=== PATIENT | female | born 1930 | race Caucasian/White ===

== ENCOUNTER 2017-10-04 05:53 | Inpatient (IN) | payer MEDICARE, OTHER ==
[2017-10-04] MEDS ORDERED: NS 0.9% 1000 ML* 1,000 ML IV ONE (05:54)
[2017-10-04 06:40] LABS: ABS Basophils 0.2 10^3/ul (0-0.2); ABS Eosinophils 0.1 10^3/ul (0-0.6); ABS Lymphocytes 1.4 10^3/ul (1.0-4.8); ABS Monocytes 0.6 10^3/ul (0-0.8); ABS Neutrophils 4.5 10^3/ul (1.5-7.7); ABS Nucleated RBC 0 10^3/ul; Eosinophil % 2.1 % (0-6); Hematocrit 36 % (35-47); Hemoglobin 12.1 g/dl (12.0-16.0); Lymphocyte % 20.1 % (25-47); Mean Corpuscular HGB Conc 34 g/dl (31-36); Mean Corpuscular Hemoglobin 30 pg (27-31); Mean Corpuscular Volume 88 fL (80-97); Mean Platelet Volume 8.9 um3 (7.4-10.4); Nucleated Red Blood Cells % 0.1; Platelet Count 359 10^3/ul (150-450); Red Blood Count 4.08 10^6/ul (4.00-5.40); Red Cell Distribution Width 16 % (10.5-15); White Blood Count 6.8 10^3/ul (3.5-10.8)
[2017-10-04 06:49] LABS: INR 0.86 (0.77-1.02)
[2017-10-04 06:55] LABS: EGFR Non-African American 83.7 (>60)
[2017-10-04] MEDS ORDERED: Iohexol 350* (CONTRAST) 500 ML MDV IV ONE (07:06)
--- NOTE | 2017-10-04 08:05 | RAD ---
INDICATION: Change in mental status COMPARISON: Chest x-ray February 19, 2015 TECHNIQUE: An AP portable view obtained at 0635 hours is submitted. FINDINGS: Bones/Soft Tissues: There are no acute bony findings. Cardiomediastinal: The cardiomediastinal silhouette is normal. Lungs: There is hyperinflation with chronic interstitial change. Pleura: There are no pleural effusions. Other: None IMPRESSION: NO ACTIVE DISEASE.
--- NOTE | 2017-10-04 08:06 | RAD ---
INDICATION: Evaluate for CVA COMPARISON: CT brain February 10, 2014 TECHNIQUE: Noncontrast axial source images were acquired from the skull base to the vertex. FINDINGS: Ventricles/sulci: There is cortical atrophy with compensatory dilatation of the CSF spaces. Brain parenchyma: There is periventricular and subcortical white matter change compatible with chronic ischemia. Intracranial hemorrhage:None. Extra-axial spaces: There are no abnormal extra axial fluid collections or evidence of extra-axial mass. Calvarium: There is no calvarial fracture or other calvarial abnormality. Scalp: There is no evidence of scalp or extracalvarial soft tissue abnormality. Paranasal sinuses/mastoid: The paranasal sinuses and mastoid air cells are clear. Other: None. IMPRESSION: Cortical atrophy with chronic microvascular ischemic change. No acute findings.
--- NOTE | 2017-10-04 08:29 | RAD ---
INDICATION: TIA COMPARISON: CT brain same date TECHNIQUE: Axial source images were acquired with coronal and sagittal reconstructions. CT angiographic technique was utilized with injection of 80 mL Omnipaque 350. FINDINGS: Aortic arch: There are no CT angiogram abnormalities of the arch or the great vessels arising from the arch. Right carotid: The common carotid artery, carotid bifurcation, extracranial portions of the internal carotid artery, carotid artery at the skull base, carotid siphon, and carotid termination appear widely patent. There is mild plaque formation about the carotid bifurcation carotid sinus with a 30% diameter stenosis at the right carotid bifurcation.. Left carotid:The common carotid artery, carotid bifurcation, extracranial portions of the internal carotid artery, carotid artery at the skull base, carotid siphon, and carotid termination appear widely patent. There is mild plaque formation about the carotid bifurcation carotid sinus with a 30% diameter stenosis of the left carotid bifurcation. Right middle and anterior cerebral arteries: There are no CT angiographic abnormalities of the middle or anterior cerebral arteries. Left middle and anterior cerebral arteries: There are no CT angiographic abnormalities of the middle or anterior cerebral arteries Right vertebral: The CT angiographic appearance of the vertebral artery is normal. Left vertebral: The CT angiographic appearance of the vertebral artery is normal. Basilar artery: The basilar artery and basilar tip appear normal. Posterior cerebral arteries: The distal distribution of the right and left posterior cerebral arteries is normal. [place]: The CT angiographic appearance of the [place] is normal. Source images show no evidence of mass or adenopathy within the neck. There are no focal brain parenchymal abnormalities or abnormal areas of enhancement. There is cortical atrophy. IMPRESSION: NO EVIDENCE OF INTRACRANIAL LARGE VESSEL BRANCH OCCLUSION, ANEURYSM, OR SIGNIFICANT STENOSIS. MILD SCLEROTIC CHANGES INVOLVING THE CAROTID BIFURCATIONS AND CAROTID SIPHONS BILATERALLY. CPT II Codes: 3100F PQRS
[2017-10-04 08:34] LABS: Urine Appearance Clear; Urine Blood 1+ (Negative); Urine Color Colorless; Urine Ketones Negative (Negative); Urine Protein Negative (Negative); Urine Specific Gravity 1.024 (1.010-1.030); Urine Urobilinogen Negative (Negative)
[2017-10-04] MEDS ORDERED: Metoprolol Tartrate IV* 1 MG/ML 5 ML VIAL IV PRN (09:21)
[2017-10-04] MEDS ORDERED: hydrALAZINE IV* 20 MG/ML VIAL IV SLOW PU PRN (09:23)
--- NOTE | 2017-10-04 10:04 | HP ---
HISTORY AND PHYSICAL: ADDENDUM: DATE OF VISIT: 10/04/17 I have spoken on the phone with both and son who confirmed that the patient's code status will be do not resuscitate and do not intubate. The difference between the two has been explained to family and they both understand what they mean. [id number]/[facility] #: [id number] MTDD
[2017-10-04] MEDS: Omeprazole CAP* 20 MG PO SCH (10:49)
[2017-10-04] MEDS: Atenolol TAB* 50 MG PO SCH (10:49)
[2017-10-04] MEDS: Valsartan TAB* 80 MG PO SCH (10:49)
--- NOTE | 2017-10-04 11:01 | HP ---
ADMITTING HISTORY AND PHYSICAL: DATE OF ADMISSION: 10/04/17 CHIEF COMPLAINT: Increasing left-sided hemiparesis. 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 was observed by nursing staff to have some "garbled speech" according to the EMS note w ith a noted blood glucose of 134 and with a noted weakness with left ski base trimmer and left facial droop. She was also observed to be unable to lift her left leg and was sent to our facility for stroke evaluati on. In the ED, she had CT noncontrast which did not show any acute disease and a CT angio of her head lik ewise did not suggest any large vessel branch occlusion or aneurysm or stenosis with some sclerotic c hanges involving the carotid bifurcation and carotid siphons bilaterally. On my evaluation, the jigna ent was oriented to place but not to time or person and was able to move all 4 extremities; however, weakly including the left lower extremity. She appeared to have non-garbled speech on my evaluation. PAST MEDICAL AND SURGICAL HISTORY: Intracranial hemorrhage, spontaneous in 2013 with residual left-s ided weakness; hypertension; history of urinary retention and frequent UTIs; history of coronary esteban ry disease; history of cataract surgery and hysterectomy; status post tonsillectomy; history of falls . MEDICATIONS: Her home medications are: 1. Atenolol 50 mg p.o. daily. 2. Melatonin 3 mg p.o. q.h.s. 3. Omeprazole 20 mg p.o. daily. 4. Losartan 80 mg p.o. daily. 5. Ranitidine 300 mg p.o. daily. ALLERGIES: AMITRIPTYLINE and NITROFURANTOIN and possible SULFA MEDICATIONS. FAMILY HISTORY: Noncontributory. SOCIAL HISTORY: Denied any tobacco, alcohol or drug use. She is retired and currently a resident of [facility]. REVIEW OF SYSTEMS: She mentions that the only thing that she is concerned about was the pain on her arms where her IV sites are located. Otherwise, she denied any recent headaches, dizziness, fevers, chills, nausea, vomiting, chest pain, shortness of breath, increased cough and sputum production, abd ominal pain, diarrhea, constipation, pain and/or increased frequency on urination, myalgias, arthralg ias, throat pain, or new skin lesions. The rest of the 14-point review of systems are otherwise unre markable. PHYSICAL EXAMINATION GENERAL APPEARANCE: The patient is awake, oriented x1, not to time and person, but oriented to place , not in acute distress. VITAL SIGNS: Shows the most recent vital signs of record with blood pressure of 183/117, heart rate of 82 beats per minute, respiratory rate of 19 per minute, saturating at 97%. HEENT: Normocephalic, atraumatic. PERRLA. Extraocular muscles intact. Negative for icterus. Mois t oral mucosa. NECK: Soft, supple with no cervical lymphadenopathy. No JVD. CHEST: Clear to auscultation bilaterally. Good air entry. No wheezes, rales, or rhonchi. HEART: S1, S2 within normal limits. Regular rate and rhythm. No murmurs, rubs, or gallops. ABDOMEN: Soft, nondistended, nontender. Normoactive bowel sounds x4 quadrants. EXTREMITIES: No cyanosis, clubbing, or edema. PSYCHIATRIC: No active psychosis, depression, suicidal or homicidal ideations. SKIN: Warm to touch. NEUROLOGIC: Left-sided weakness, but able to move all 4 extremities. I do not detect any garbled sp eech reported in the EMS report at the time of my visit. LABORATORIES AND RADIOLOGICAL DATA: Have been reviewed. Please see appropriate data. ASSESSMENT AND PLAN: 1. Hypertensive emergency. We will place the patient on p.r.n. hydralazine and metoprolol with appr opriate holding orders p.r.n. for a MAP greater than 90 based on her presenting blood pressure. The patient likely has hypertensive emergency given worsening of previous left-sided weakness as well as garbled speech that is no longer appreciated in my subsequent examination. We will try to lower her blood pressure, but no more than greater than 30% of her presenting MAP to avoid inducing an ischemic stroke when she is already at high risk. We will also continue her atenolol and valsartan and we wi ll continue to titrate her medications as above. We will also ask nursing staff to do a bedside swall ow eval and if she passes, she can start with clear liquids and advance diet as tolerated. 2. Gastroesophageal reflux disease. We will increase omeprazole dose and we will discontinue raniti dine to further narrow her medication regimen. 3. Insomnia. Continue melatonin p.o. q.h.s. 4. DVT prophylaxis. The patient is at higher risk for deep venous thrombosis; however, given her ad vanced age and previous history of intracranial hemorrhage, we will give heparin q.12. 5. Disposition. For PT eval and we will repeat echocardiogram on Friday and for possible discharge either on Friday or Friday. [id number]/[facility] #: [id number]
[2017-10-04] MEDS ORDERED: Acetaminophen TAB* 325 MG ONE (13:01)
[2017-10-04] MEDS: Acetaminophen TAB* 325 MG PO PRN (13:02)
[2017-10-04] MEDS ORDERED: Ondansetron ODT TAB* 4 MG PO PRN (17:52)
[2017-10-04] MEDS: LORazepam TAB(*) 0.5 MG PO PRN (18:32)
[2017-10-04] MEDS ORDERED: Melatonin 3 MG TAB PO ONE (18:54)
[2017-10-04] MEDS: Melatonin 3 MG TAB PO SCH (18:55)
--- NOTE | 2017-10-04 19:37 | ED ---
Kel Witt Tariq, scribed for Satya Jett MD on 10/04/17 at 0630 . Complex/Multi-Sys Presentation - HPI Summary HPI Summary: A 86 y/o female KADIE presents to ED c/o left-sided weakness. Currently, the pt states she is fine and does not have any issues. She states she can move with no issues and no pain anywhere. As per EMS, pt was at a nursing facility in [place]. Around 0400 for a routine check, the pt was fine, however at approximately 0450, pt pushed her distress button which is where she had slurred speech and left-sided weakness. She exhibited a left-side droop, could not stand and had no strength at all. EMS tested reading instructor on left side and pt had a hard time. "There is a drastic difference with her strength compared to now. Pt walks with walker and doesn't use oxygen at home. PMHx of CVA. - History Of Current Complaint Chief Complaint: EDWeakness Time Seen by Provider: 10/04/17 05:54 - Allergies/Home Medications Allergies/Adverse Reactions: Allergies Allergy/AdvReac Type Severity Reaction Status Date / Time amitriptyline Allergy Unknown Verified 10/04/17 06:26 Reaction Details nitrofurantoin Allergy Unknown Verified 10/04/17 06:26 Reaction Details Home Medications: Home Medications Atenolol TAB* [Tenormin TAB* 50 MG] 50 mg PO DAILY 10/04/17 [History Confirmed 10/04/17] Melatonin [Melatin] 3 mg PO BEDTIME 10/04/17 [History Confirmed 10/04/17] Omeprazole CAP* [Prilosec CAP* 20 MG] 20 mg PO DAILY 10/04/17 [History Confirmed 10/04/17] PMH/Surg Hx/FS Hx/Imm Hx Endocrine/Hematology History: Denies: Hx Diabetes Cardiovascular History: Reports: Hx Coronary Artery Disease, Hx Hypertension Respiratory History: Denies: Hx Chronic Obstructive Pulmonary Disease (COPD) GI History: Denies: Other GI Disorders History: Reports: Other Problems/Disorders - davis placed here r/t inability to urinate Denies: Hx Dialysis Musculoskeletal History: Denies: Hx Back Problems Sensory History: Reports: Hx Contacts or Glasses Opthamlomology History: Reports: Hx Contacts or Glasses Neurological History: Reports: Other Neuro Impairments/Disorders - CVA Denies: Hx Dementia, Hx Seizures - Cancer History Cancer Type, Location and Year: basal cell carcinoma 2001 - Surgical History Surgery Procedure, Year, and Place: bladder tuck 1995, left and right cataracts , basal cell carcinoma 2001, small bowel resection 2005, heart cath 2005 Hx Anesthesia Reactions: No Infectious Disease History: No Infectious Disease History: Denies: Traveled Outside the [place] in Last 30 Days - Family History Known Family History: Negative: Diabetes - Social History Alcohol Use: None Substance Use Type: Reports: None Smoking Status (MU): Never Smoked Tobacco Review of Systems Negative: Fever Positive: Other - NEGATIVE: body pain All Other Systems Reviewed And Are Negative: Yes Physical Exam - Summary Physical Exam Summary: GENERAL: Patient is a well developed and nourished female who is lying comfortable in the stretcher. Patient is not in any acute respiratory distress. HEAD AND FACE: Normocephalic EYES: PERRLA, EOMI x 2. EARS: Hearing grossly intact. MOUTH: Oropharynx within normal limits. NECK: Supple, trachea is midline, no adenopathy, no JVD, no carotid bruit. CHEST: Symmetric, no tenderness at palpation LUNGS: Clear to auscultation bilaterally. No wheezing or crackles. CVS: Regular rate and rhythm, S1 and S2 present, no murmurs or gallops appreciated. ABDOMEN: Soft, non-tender. Bowel sounds are normal. No abdominal abnormal pulsations. EXTREMITIES: Slight motor drift on left side. NEURO: Alert and oriented x 3. No acute neurological deficits. Speech is normal and follows commands. SKIN: Dry and warm Neuro exam extended: Cranial nerves II-XII grossly intact, no dysmetria finger to nose, nml heel to solano Triage Information Reviewed: Yes Vital Signs On Initial Exam: Initial Vitals Temp Pulse Resp BP Pulse Ox 97.5 F 81 21 212/96 95 10/04/17 06:00 10/04/17 06:00 10/04/17 06:00 10/04/17 06:00 10/04/17 06:00 Vital Signs Reviewed: Yes Diagnostics - Vital Signs Vital Signs Temp Pulse Resp BP Pulse Ox 10/04/17 06:00 97.5 F 81 21 212/96 95 - Laboratory Lab Results: Lab Results 06/23/18 06/23/18 06/23/18 Range/Units 06:31 06:31 06:31 WBC 6.8 (3.5-10.8) 10^3/ul RBC 4.08 (4.00-5.40) 10^6/ul Hgb 12.1 (12.0-16.0) g/dl Hct 36 (35-47) % MCV 88 (80-97) fL MCH 30 (27-31) pg MCHC 34 (31-36) g/dl RDW 16 H (10.5-15) % Plt Count 359 (150-450) 10^3/ul MPV 8.9 (7.4-10.4) um3 Neut % (Auto) 66.0 (38-83) % Lymph % (Auto) 20.1 L (25-47) % Emanuel % (Auto) 9.5 H (0-7) % Eos % (Auto) 2.1 (0-6) % Baso % (Auto) 2.3 H (0-2) % Absolute Neuts (auto) 4.5 (1.5-7.7) 10^3/ul Absolute Lymphs (auto) 1.4 (1.0-4.8) 10^3/ul Absolute Monos (auto) 0.6 (0-0.8) 10^3/ul Absolute Eos (auto) 0.1 (0-0.6) 10^3/ul Absolute Basos (auto) 0.2 (0-0.2) 10^3/ul Absolute Nucleated RBC 0 10^3/ul Nucleated RBC % 0.1 INR (Anticoag Therapy) 0.86 (0.77-1.02) APTT 26.5 (26.0-36.3) seconds Sodium 139 (135-145) mmol/L Potassium 3.6 (3.5-5.0) mmol/L Chloride 104 (101-111) mmol/L Carbon Dioxide 28 (22-32) mmol/L Anion Gap 7 (2-11) mmol/L BUN 19 (6-24) mg/dL Creatinine 0.67 (0.51-0.95) mg/dL Est GFR ( Amer) 101.2 (>60) Est GFR (Non-Af Amer) 83.7 (>60) BUN/Creatinine Ratio 28.4 H (8-20) Glucose 102 H (70-100) mg/dL Lactic Acid (0.5-2.0) mmol/L Calcium 9.5 (8.6-10.3) mg/dL Total Bilirubin 0.60 (0.2-1.0) mg/dL AST 31 (13-39) U/L ALT 29 (7-52) U/L Alkaline Phosphatase 86 (34-104) U/L Troponin I 0.01 (<0.04) ng/mL Total Protein 7.2 (6.4-8.9) g/dL Albumin 3.9 (3.2-5.2) g/dL Globulin 3.3 (2-4) g/dL Albumin/Globulin Ratio 1.2 (1-3) Triglycerides 168 mg/dL Cholesterol 186 mg/dL LDL Cholesterol 100 mg/dL HDL Cholesterol 52.6 mg/dL Urine Color Urine Appearance Urine pH (5-9) Ur Specific [place] (1.010-1.030) Urine Protein (Negative) Urine Ketones (Negative) Urine Blood (Negative) Urine Nitrate (Negative) Urine Bilirubin (Negative) Urine Urobilinogen (Negative) Ur Leukocyte Esterase (Negative) Urine WBC (Auto) (Absent) Urine RBC (Auto) (Absent) Ur Squamous Epith Cells (Absent) Urine Bacteria (Absent) Urine Glucose (Negative) Blood Type Antibody Screen 18 18 10/04/17 Range/Units 06:31 06:31 08:19 WBC (3.5-10.8) 10^3/ul RBC (4.00-5.40) 10^6/ul Hgb (12.0-16.0) g/dl Hct (35-47) % MCV (80-97) fL MCH (27-31) pg MCHC (31-36) g/dl RDW (10.5-15) % Plt Count (150-450) 10^3/ul MPV (7.4-10.4) um3 Neut % (Auto) (38-83) % Lymph % (Auto) (25-47) % Emanuel % (Auto) (0-7) % Eos % (Auto) (0-6) % Baso % (Auto) (0-2) % Absolute Neuts (auto) (1.5-7.7) 10^3/ul Absolute Lymphs (auto) (1.0-4.8) 10^3/ul Absolute Monos (auto) (0-0.8) 10^3/ul Absolute Eos (auto) (0-0.6) 10^3/ul Absolute Basos (auto) (0-0.2) 10^3/ul Absolute Nucleated RBC 10^3/ul Nucleated RBC % INR (Anticoag Therapy) (0.77-1.02) APTT (26.0-36.3) seconds Sodium (135-145) mmol/L Potassium (3.5-5.0) mmol/L Chloride (101-111) mmol/L Carbon Dioxide (22-32) mmol/L Anion Gap (2-11) mmol/L BUN (6-24) mg/dL Creatinine (0.51-0.95) mg/dL Est GFR ( Amer) (>60) Est GFR (Non-Af Amer) (>60) BUN/Creatinine Ratio (8-20) Glucose (70-100) mg/dL Lactic Acid 1.1 (0.5-2.0) mmol/L Calcium (8.6-10.3) mg/dL Total Bilirubin (0.2-1.0) mg/dL AST (13-39) U/L ALT (7-52) U/L Alkaline Phosphatase (34-104) U/L Troponin I (<0.04) ng/mL Total Protein (6.4-8.9) g/dL Albumin (3.2-5.2) g/dL Globulin (2-4) g/dL Albumin/Globulin Ratio (1-3) Triglycerides mg/dL Cholesterol mg/dL LDL Cholesterol mg/dL HDL Cholesterol mg/dL Urine Color Colorless Urine Appearance Clear Urine pH 8.0 (5-9) Ur Specific [place] 1.024 (1.010-1.030) Urine Protein Negative (Negative) Urine Ketones Negative (Negative) Urine Blood 1+ A (Negative) Urine Nitrate Negative (Negative) Urine Bilirubin Negative (Negative) Urine Urobilinogen Negative (Negative) Ur Leukocyte Esterase Negative (Negative) Urine WBC (Auto) Trace(0-5/hpf) (Absent) Urine RBC (Auto) Trace(0-2/hpf) (Absent) Ur Squamous Epith Cells Present A (Absent) Urine Bacteria Absent (Absent) Urine Glucose Negative (Negative) Blood Type O Positive Antibody Screen Negative Result Diagrams: 18 06:31 18 06:31 Lab Statement: Any lab studies that have been ordered have been reviewed, and results considered in the medical decision making process. - CT BRAIN CT CT Interpretation Completed By: Radiologist - Chronic microangiopathic change in the perventricular white matter appears stable relative to the prior study. ED physician reviewed this radiology report. - EKG 0606 Cardiac Rate: NL - 79 BPM EKG Rhythm: Sinus Rhythm EKG Interpretation: left axis deviation Re-Evaluation - Re-Evaluation First Eval Re-Evaluation Time: 06:58 Complex Multi-Symp Course/Dx Course Of Treatment: 86-year-old female with a known history of stroke who has been brought in by EMS for left-sided weakness associated with slurred speech and left-sided facial droop. Based on EMS report, romina Hidalgo was called prior to arrival. Patient's neurologic exam improved drastically upon arrival. CT scan of the head was done and was unremarkable. Patient would be admitted for TIA evaluation. Case discussed with hospitalist. - Diagnoses Differential Diagnoses/HQI/PQRI: CVA Provider Diagnoses: TIA (transient ischemic attack) During the Visit The Following Alert/Code Occurred: Code Hidalgo - Physician Notifications Discussed Care Of Patient With: Moreno Hebert - NIH equals 0, admit pt Discharge - Sign-Out/Discharge Documenting (check all that apply): Discharge/Admit/Transfer - Admit - Discharge Plan Condition: Stable Disposition: ADMITTED TO [facility] - Billing Disposition and Condition Condition: STABLE Disposition: Admitted to [facility] The documentation as recorded by the Kel esqueda Tariq accurately reflects the service I personally performed and the decisions made by , Satya Jett MD.
[2017-10-04] MEDS: Heparin VIAL(*) 5000 UNITS/ML VIAL (FIVE THOUSAND) SUBCUT SCH (20:07)
[2017-10-04] MEDS ORDERED: Melatonin (NF) ** ENTER STRENGTH IN LABEL DIRECTIONS PO SCH (21:00)
[2017-10-05] MEDS: Melatonin 3 MG TAB PO SCH ×2 (01:27→20:35)
[2017-10-05 05:46] LABS: ABS Basophils 0.1 10^3/ul (0-0.2); ABS Eosinophils 0.1 10^3/ul (0-0.6); ABS Lymphocytes 1.5 10^3/ul (1.0-4.8); ABS Monocytes 0.8 10^3/ul (0-0.8); ABS Neutrophils 6.8 10^3/ul (1.5-7.7); ABS Nucleated RBC 0 10^3/ul; Eosinophil % 1.4 % (0-6); Hematocrit 35 % (35-47); Hemoglobin 11.8 g/dl (12.0-16.0); Mean Corpuscular HGB Conc 33 g/dl (31-36); Mean Corpuscular Hemoglobin 30 pg (27-31); Mean Corpuscular Volume 88 fL (80-97); Nucleated Red Blood Cells % 0.1; Platelet Count 346 10^3/ul (150-450); Red Blood Count 4.01 10^6/ul (4.00-5.40); Red Cell Distribution Width 15 % (10.5-15); White Blood Count 9.3 10^3/ul (3.5-10.8)
[2017-10-05 06:06] LABS: EGFR Non-African American 93.2 (>60)
[2017-10-05] MEDS: Atenolol TAB* 50 MG PO SCH ×2 (06:13→07:03)
[2017-10-05] MEDS: Valsartan TAB* 80 MG PO SCH ×2 (06:13→07:03)
[2017-10-05] MEDS: Omeprazole CAP* 20 MG PO SCH (06:13)
[2017-10-05] MEDS: Heparin VIAL(*) 5000 UNITS/ML VIAL (FIVE THOUSAND) SUBCUT SCH ×3 (06:14→20:34)
[2017-10-05] MEDS: LORazepam TAB(*) 0.5 MG PO PRN ×2 (06:34→15:05)
[2017-10-05] MEDS ORDERED: Potassium Chloride LIQUID* 20 MEQ PACKET PO ONE (09:03)
[2017-10-05] MEDS ORDERED: Magnesium Sulf 4 GM/100 ML IV* 4,000 MG/100 ML BAG IVPB ONE (09:03)
[2017-10-05] MEDS ORDERED: Haloperidol INJ IV/IM* 5 MG/ML AMP IV SLOW PU PRN (16:22)
--- NOTE | 2017-10-05 19:14 | PN ---
Subjective Date of Service: 10/05/17 Interval History: . patient agitated often during the day started haldol at low dose poor medical insight no garbled speech based on my observation. MRI ordered for possible ischemic explanation to wekaness (in addition to hypertensive urgency) eating well patient in good spirits at times, agitated at others. Resident of [facility] . Family History: Unchanged from Admission Social History: Unchanged from Admission Past Medical History: Unchanged from Admission Objective Active Medications: . Acetaminophen (Tylenol Tab*) 650 mg PO Q6H PRN PRN Reason: FEVER/PAIN Last Admin: 10/04/17 13:02 Dose: 650 mg Atenolol (Tenormin Tab*) 50 mg PO DAILY [facility] Last Admin: 10/05/17 07:03 Dose: Not Given Haloperidol Lactate (Haldol Inj Iv/Im*) 0.5 mg IV SLOW PU Q6H PRN PRN Reason: AGITATION Heparin Sodium (Porcine) (Heparin Vial(*)) 5,000 units SUBCUT Q12HR [facility] Last Admin: 10/05/17 07:03 Dose: Not Given Lorazepam (Ativan Tab(*)) 0.25 mg PO Q8H PRN PRN Reason: ANXIETY Last Admin: 10/05/17 15:05 Dose: 0.25 mg Melatonin (Melatonin) 3 mg PO BEDTIME [facility] Last Admin: 10/05/17 01:27 Dose: Not Given Metoprolol Tartrate (Lopressor Iv*) 5 mg IV Q6H PRN [elevated bp] PRN Reason: MAP Last Admin: 10/04/17 16:17 Dose: 5 mg Omeprazole (Prilosec Cap*) 40 mg PO 0730 [facility] Last Admin: 10/05/17 06:13 Dose: 40 mg Ondansetron HCl (Zofran Odt Tab*) 8 mg PO Q6H PRN PRN Reason: NAUSEA Valsartan (Diovan Tab*) 80 mg PO DAILY [facility] Last Admin: 10/05/17 07:03 Dose: Not Given Vital Signs - 8 hr 10/05/17 10/05/17 10/05/17 11:40 15:05 15:15 Temperature 98.0 F 98.5 F Pulse Rate 67 69 Respiratory 20 20 14 Rate Blood Pressure 130/64 132/62 (mmHg) O2 Sat by Pulse 99 100 Oximetry 10/05/17 17:05 Temperature Pulse Rate Respiratory 18 Rate Blood Pressure (mmHg) O2 Sat by Pulse Oximetry Oxygen Devices in Use Now: None Appearance: elderly and very frail. Only 32 kg... 4'7" Eyes: No Scleral Icterus Ears/Nose/Mouth/Throat: Clear Oropharnyx Neck: Trachea Midline Respiratory: Symmetrical Chest Expansion and Respiratory Effort Cardiovascular: RRR Abdominal: NL Sounds; No Tenderness; No Distention Lymphatic: No Cervical Adenopathy Extremities: No Edema, - - purpuric bruising on R forearm Neurological: - - confused often -- thinks she lives with her father Lines/Tubes/Other Access: Clean, Dry and Intact Peripheral IV Nutrition: Taking PO's Result Diagrams: 10/05/17 05:22 10/05/17 05:22 Additional Lab and Data: Lab Results 10/04/17 10/04/17 10/04/17 Range/Units 06:31 06:31 06:31 WBC 6.8 (3.5-10.8) 10^3/ul RBC 4.08 (4.00-5.40) 10^6/ul Hgb 12.1 (12.0-16.0) g/dl Hct 36 (35-47) % MCV 88 (80-97) fL MCH 30 (27-31) pg MCHC 34 (31-36) g/dl RDW 16 H (10.5-15) % Plt Count 359 (150-450) 10^3/ul MPV 8.9 (7.4-10.4) um3 Neut % (Auto) 66.0 (38-83) % Lymph % (Auto) 20.1 L (25-47) % [place] % (Auto) 9.5 H (0-7) % Eos % (Auto) 2.1 (0-6) % Baso % (Auto) 2.3 H (0-2) % Absolute Neuts (auto) 4.5 (1.5-7.7) 10^3/ul Absolute Lymphs (auto) 1.4 (1.0-4.8) 10^3/ul Absolute Monos (auto) 0.6 (0-0.8) 10^3/ul Absolute Eos (auto) 0.1 (0-0.6) 10^3/ul Absolute Basos (auto) 0.2 (0-0.2) 10^3/ul Absolute Nucleated RBC 0 10^3/ul Nucleated RBC % 0.1 INR (Anticoag Therapy) 0.86 (0.77-1.02) APTT 26.5 (26.0-36.3) seconds Sodium 139 (135-145) mmol/L Potassium 3.6 (3.5-5.0) mmol/L Chloride 104 (101-111) mmol/L Carbon Dioxide 28 (22-32) mmol/L Anion Gap 7 (2-11) mmol/L BUN 19 (6-24) mg/dL Creatinine 0.67 (0.51-0.95) mg/dL Est GFR ( Amer) 101.2 (>60) Est GFR (Non-Af Amer) 83.7 (>60) BUN/Creatinine Ratio 28.4 H (8-20) Glucose 102 H (70-100) mg/dL Lactic Acid (0.5-2.0) mmol/L Calcium 9.5 (8.6-10.3) mg/dL Total Bilirubin 0.60 (0.2-1.0) mg/dL AST 31 (13-39) U/L ALT 29 (7-52) U/L Alkaline Phosphatase 86 (34-104) U/L Troponin I 0.01 (<0.04) ng/mL Total Protein 7.2 (6.4-8.9) g/dL Albumin 3.9 (3.2-5.2) g/dL Globulin 3.3 (2-4) g/dL Albumin/Globulin Ratio 1.2 (1-3) Triglycerides 168 mg/dL Cholesterol 186 mg/dL LDL Cholesterol 100 mg/dL HDL Cholesterol 52.6 mg/dL Urine Color Urine Appearance Urine pH (5-9) Ur Specific [place] (1.010-1.030) Urine Protein (Negative) Urine Ketones (Negative) Urine Blood (Negative) Urine Nitrate (Negative) Urine Bilirubin (Negative) Urine Urobilinogen (Negative) Ur Leukocyte Esterase (Negative) Urine WBC (Auto) (Absent) Urine RBC (Auto) (Absent) Ur Squamous Epith Cells (Absent) Urine Bacteria (Absent) Urine Glucose (Negative) Blood Type Antibody Screen 10/04/17 10/04/17 10/04/17 Range/Units 06:31 06:31 08:19 WBC (3.5-10.8) 10^3/ul RBC (4.00-5.40) 10^6/ul Hgb (12.0-16.0) g/dl Hct (35-47) % MCV (80-97) fL MCH (27-31) pg MCHC (31-36) g/dl RDW (10.5-15) % Plt Count (150-450) 10^3/ul MPV (7.4-10.4) um3 Neut % (Auto) (38-83) % Lymph % (Auto) (25-47) % [place] % (Auto) (0-7) % Eos % (Auto) (0-6) % Baso % (Auto) (0-2) % Absolute Neuts (auto) (1.5-7.7) 10^3/ul Absolute Lymphs (auto) (1.0-4.8) 10^3/ul Absolute Monos (auto) (0-0.8) 10^3/ul Absolute Eos (auto) (0-0.6) 10^3/ul Absolute Basos (auto) (0-0.2) 10^3/ul Absolute Nucleated RBC 10^3/ul Nucleated RBC % INR (Anticoag Therapy) (0.77-1.02) APTT (26.0-36.3) seconds Sodium (135-145) mmol/L Potassium (3.5-5.0) mmol/L Chloride (101-111) mmol/L Carbon Dioxide (22-32) mmol/L Anion Gap (2-11) mmol/L BUN (6-24) mg/dL Creatinine (0.51-0.95) mg/dL Est GFR ( Amer) (>60) Est GFR (Non-Af Amer) (>60) BUN/Creatinine Ratio (8-20) Glucose (70-100) mg/dL Lactic Acid 1.1 (0.5-2.0) mmol/L Calcium (8.6-10.3) mg/dL Total Bilirubin (0.2-1.0) mg/dL AST (13-39) U/L ALT (7-52) U/L Alkaline Phosphatase (34-104) U/L Troponin I (<0.04) ng/mL Total Protein (6.4-8.9) g/dL Albumin (3.2-5.2) g/dL Globulin (2-4) g/dL Albumin/Globulin Ratio (1-3) Triglycerides mg/dL Cholesterol mg/dL LDL Cholesterol mg/dL HDL Cholesterol mg/dL Urine Color Colorless Urine Appearance Clear Urine pH 8.0 (5-9) Ur Specific [place] 1.024 (1.010-1.030) Urine Protein Negative (Negative) Urine Ketones Negative (Negative) Urine Blood 1+ A (Negative) Urine Nitrate Negative (Negative) Urine Bilirubin Negative (Negative) Urine Urobilinogen Negative (Negative) Ur Leukocyte Esterase Negative (Negative) Urine WBC (Auto) Trace(0-5/hpf) (Absent) Urine RBC (Auto) Trace(0-2/hpf) (Absent) Ur Squamous Epith Cells Present A (Absent) Urine Bacteria Absent (Absent) Urine Glucose Negative (Negative) Blood Type O Positive Antibody Screen Negative Microbiology and Other Data: Microbiology 10/04/17 08:19 Urine Culture - Final Urine 10/04/17 09:43 Nasal Screen MRSA (PCR) - Final Nasal Mrsa Not Detected Assess/Plan/Problems-Billing . Assessment: 86 yo female with L sided weakness and working diagnosis of HTN-related emergency. MRI ordered to explore ischemic etiology. 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 - BP controlled -- target stage I HTN range. - continuing outpatient regimen with prn IV agents for acute control. (2) Hypertensive encephalopathy Current Visit: Yes Status: Acute Priority: High Code(s): I67.4 - HYPERTENSIVE ENCEPHALOPATHY Comment: - resolved with blood pressure control. (3) Altered mental status Current Visit: No Status: Chronic Priority: High Code(s): R41.82 - ALTERED MENTAL STATUS, UNSPECIFIED Comment: - worsening confusion and slurred speech - HTN control with prn IV agents - continue PO ARB, BB (4) HTN (hypertension) Current Visit: No Status: Chronic Priority: High Code(s): I10 - ESSENTIAL (PRIMARY) HYPERTENSION Comment: - target Stage I htn; lower in time. - continuing PO BB, ARB. (5) CVA (cerebral vascular accident) Current Visit: Yes Status: Suspected Priority: High Code(s): I63.9 - CEREBRAL INFARCTION, UNSPECIFIED Comment: - check MRI for better assessment of ischemic process - holding ASA for h/o spontaneous ICH... - LDL 100; could start low dose empiric statin...though equivocl benefit.
[2017-10-06] MEDS: Valsartan TAB* 80 MG PO SCH (08:18)
[2017-10-06] MEDS: Omeprazole CAP* 20 MG PO SCH (08:18)
[2017-10-06] MEDS: Atenolol TAB* 50 MG PO SCH (08:19)
[2017-10-06] MEDS: Heparin VIAL(*) 5000 UNITS/ML VIAL (FIVE THOUSAND) SUBCUT SCH ×2 (08:22→20:35)
--- NOTE | 2017-10-06 08:43 | ECHO ---
Patient: ERNIE CRAVEN Rec#: [id number] : 1930 Date: 10/06/2017 Age: 86y Height: 147.32 cm / 58.0 in Weight: 43.09 kg / 95.0 lbs Sex: F BSA: 1.33 Room#: 439 Admit Date#: 10/04/2017 Type: Inpatient Referring: Artie Dunbar Reading: Niko Moreno MD Healthcare Account Manager: Elle Beckford [facility] Transthoracic Echocardiogram Indication: Hypertensive Emergency BP: 142/43 HR: 61 Rhythm: NSR Findings History: HTN,CAD,intracranial hemorrhage 2013. Technical Comments: The study quality is good. Completed at 0827. Left Ventricle: The left ventricular chamber size is decreased. Septal wall hypertrophy is observed. Global left ventricular wall motion and contractility are within normal limits. There is normal left ventricular systolic function. The estimated ejection fraction is 60-65%. The assessment of diastolic function is non-diagnostic. The patient was unable to perform a Valsalva maneuver. Left Atrium: The left atrial chamber size is normal. Right Ventricle: The right ventricular cavity size is normal. The right ventricular global systolic function is normal. Right Atrium: The right atrial cavity size is normal. Aortic Valve: The aortic valve is trileaflet. There is mild aortic regurgitation. There is no evidence of aortic stenosis. Mitral Valve: The mitral valve leaflets are mildly thickened. There is no evidence of mitral regurgitation. There is no evidence of mitral stenosis. Tricuspid Valve: The tricuspid valve leaflets are normal. There is moderate tricuspid regurgitation. There is evidence of mild pulmonary hypertension. There is no tricuspid stenosis. Pulmonic Valve: The pulmonic valve appears normal. There is a trace pulmonic regurgitation. There is no pulmonic stenosis. Pericardium: The pericardium appears normal. Aorta: There is no dilatation of the ascending aorta. There is no dilatation of the aortic arch. There is no dilation of the aortic root. Pulmonary Artery: The main pulmonary artery appears normal. Venous: The inferior vena cava appears normal in size. There is a greater than 50% respiratory change in the inferior vena cava dimension. Summary: There was not any prior study for comparison. Conclusions Global left ventricular wall motion and contractility are within normal limits. There is normal left ventricular systolic function. The estimated ejection fraction is 60-65%. The right ventricular global systolic function is normal. There is mild aortic regurgitation. There is no evidence of mitral regurgitation. There is moderate tricuspid regurgitation. There is evidence of mild pulmonary hypertension. The pericardium appears normal. Measurements Name Value Normal Range RVIDd (AP) 2D 2.2 cm (0.9 - 2.6) RVDdMajor (2D) 2.6 cm (2.2 - 4.4) RAd ISD 4CH 3.9 cm (3.4 - 4.9) RA (A4C)W 3 cm (2.9 - 4.6) IVSd (2D) 0.7 cm (0.6 - 1) LVPWd (2D) 1.2 cm (0.6 - 1) LVIDd (2D) 3.2 cm (3.6 - 5.4) LVIDs (2D) 2 cm - LV FS (2D) 39 % (25 - 45) Aortic Annulus 1.7 cm (1.4 - 2.6) Ao root diameter (2D) 2.9 cm (2.1 - 3.5) Ascending Ao 3 cm (2.1 - 3.4) Aortic arch 2.4 cm (1.8 - 3.4) Descending Ao 0.3 cm - LA dimension (AP) 2D 2.4 cm (2.3 - 3.8) LAd ISD 4CH 3.6 cm (2.9 - 5.3) LA ISD 4CH W 3 cm (2.5 - 4.5) Name Value Normal Range LA ESV SP 4CH (A/L) 19 ml - LA ESV SP 2CH (A/L) 25 ml - LA ESV BP (A/L) 23 ml - LA ESV BP (A/L) index 17.07 ml/m2 - LA ESV SP 4CH (MOD) 16 ml - LA ESV SP 2CH (MOD) 23 ml - Name Value Normal Range MV E-wave Vmax 0.8 m/sec - MV deceleration time 293 msec - MV A-wave Vmax 1.1 m/sec - MV E:A ratio 0.74 ratio - LV septal e' Vmax 0.06 m/sec - LV lateral e' Vmax 0.06 m/sec - LV E:e' septal ratio 13.33 ratio - LV E:e' lateral ratio 13.33 ratio - Name Value Normal Range AV Vmax 1.4 m/sec - AV VTI 35.2 cm - AV peak gradient 3.69 mmHg - AV mean gradient 2.19 mmHg - LVOT Vmax 1 m/sec - LVOT VTI 28.9 cm - LVOT peak gradient 4.35 mmHg - LVOT mean gradient 2.16 mmHg - AR PHT 563 msec - AR peak gradient 24.06 mmHg - Name Value Normal Range TR Vmax 2.7 m/sec - TR peak gradient 29 mmHg - RAP 3 mmHg - RVSP 32 mmHg - IVC diameter 1.1 cm - Name Value Normal Range PV Vmax 0.7 m/sec - PV peak gradient 1.74 mmHg -
--- NOTE | 2017-10-06 13:02 | RAD ---
Indication: Presented October 04, 2017 with neurological changes concerning for stroke. History of intracranial hemorrhage. Comparison: October 04, [address] angiogram Technique: [employer] [place] 1.5 Ayesha [id number] with GEM suite. MRI brain without contrast. Report: Diffusion series is negative for acute or subacute ischemia. Signal loss at the level of the RIGHT thalamus, internal capsule, and coronal radiata on susceptibility series consistent with hemosiderin deposition due to previous hemorrhage corresponding with history of prior intracranial hemorrhage. Moderate diffuse prominence of the cerebral sulci and proportional ventricular enlargement reflecting atrophy. Patent basal cisterns. Extensive increased T2 signal in the periventricular and subcortical white matter of the cerebral hemispheres most consistent with sequela of chronic small vessel ischemic disease. No suspicious intra-axial or extra-axial lesions evident. Preserved major intracranial flow-voids. T2 hyperintensity at the level of the RIGHT jugular bulb is most consistent with presence of slow flow given diminutive size of the extracranial RIGHT internal jugular vein with normal variant LEFT IJ dominance. No suspicious abnormality at the orbits. No suspicious calvarial or skull base lesions evident. Negative for paranasal sinus fluid levels. RIGHT mastoid effusions noted. IMPRESSION: 1. Atrophy and hemosiderin deposition related to old RIGHT thalamus, internal capsule, and coronal radiata region hemorrhage. 2. No acute intracranial hemorrhage evident. 3. Involutional change and stigmata of chronic small vessel ischemic disease. 4. No evidence for acute or subacute ischemia.
--- NOTE | 2017-10-06 14:57 | PN ---
Subjective Date of Service: 10/06/17 Interval History: . Patient at baseline. she is intermittently confused, but this is her baseline as per staff. MRI tolerated well; no ischemic changes and no acute hemorrhagic changes either. patient's blood pressure is better controlled. can be discharged back to [facility] with no medication changes. follow up with PCP this or next week. . Family History: Unchanged from Admission Social History: Unchanged from Admission Past Medical History: Unchanged from Admission Objective Active Medications: . Acetaminophen (Tylenol Tab*) 650 mg PO Q6H PRN PRN Reason: FEVER/PAIN Last Admin: 10/04/17 13:02 Dose: 650 mg Atenolol (Tenormin Tab*) 50 mg PO DAILY [facility] Last Admin: 10/06/17 08:19 Dose: 50 mg Haloperidol Lactate (Haldol Inj Iv/Im*) 0.5 mg IV SLOW PU Q6H PRN PRN Reason: AGITATION Last Admin: 10/05/17 20:34 Dose: 0.5 mg Heparin Sodium (Porcine) (Heparin Vial(*)) 5,000 units SUBCUT Q12HR [facility] Last Admin: 10/06/17 08:22 Dose: 5,000 units Lorazepam (Ativan Tab(*)) 0.25 mg PO Q8H PRN PRN Reason: ANXIETY Last Admin: 10/05/17 15:05 Dose: 0.25 mg Melatonin (Melatonin) 3 mg PO BEDTIME [facility] Last Admin: 10/05/17 20:35 Dose: 3 mg Metoprolol Tartrate (Lopressor Iv*) 5 mg IV Q6H PRN PRN Reason: MAP Last Admin: 10/04/17 16:17 Dose: 5 mg Omeprazole (Prilosec Cap*) 40 mg PO 0730 [facility] Last Admin: 10/06/17 08:18 Dose: 40 mg Ondansetron HCl (Zofran Odt Tab*) 8 mg PO Q6H PRN PRN Reason: NAUSEA Potassium Chloride (Klor-Con Liquid*) 40 meq PO DAILY [facility] Valsartan (Diovan Tab*) 80 mg PO DAILY [facility] Last Admin: 10/06/17 08:18 Dose: 80 mg . Vital Signs - 8 hr 10/06/17 10/06/17 10/06/17 07:22 08:00 08:24 Temperature 98.1 F 98.0 F Pulse Rate 61 75 Respiratory 16 18 18 Rate Blood Pressure 120/53 136/57 (mmHg) O2 Sat by Pulse 98 98 Oximetry Oxygen Devices in Use Now: None Appearance: elderly and frail Eyes: No Scleral Icterus Ears/Nose/Mouth/Throat: Clear Oropharnyx Neck: NL Appearance and Movements; NL JVP Respiratory: Symmetrical Chest Expansion and Respiratory Effort Cardiovascular: NL Sounds; No Murmurs; No JVD Abdominal: NL Sounds; No Tenderness; No Distention Lymphatic: No Cervical Adenopathy Extremities: No Edema Skin: No Rash or Ulcers Neurological: NL Sensation Lines/Tubes/Other Access: Clean, Dry and Intact Peripheral IV Result Diagrams: 10/05/17 05:22 10/05/17 05:22 Additional Lab and Data: Lab Results 10/04/17 10/04/17 10/04/17 Range/Units 06:31 06:31 06:31 WBC 6.8 (3.5-10.8) 10^3/ul RBC 4.08 (4.00-5.40) 10^6/ul Hgb 12.1 (12.0-16.0) g/dl Hct 36 (35-47) % MCV 88 (80-97) fL MCH 30 (27-31) pg MCHC 34 (31-36) g/dl RDW 16 H (10.5-15) % Plt Count 359 (150-450) 10^3/ul MPV 8.9 (7.4-10.4) um3 Neut % (Auto) 66.0 (38-83) % Lymph % (Auto) 20.1 L (25-47) % [place] % (Auto) 9.5 H (0-7) % Eos % (Auto) 2.1 (0-6) % Baso % (Auto) 2.3 H (0-2) % Absolute Neuts (auto) 4.5 (1.5-7.7) 10^3/ul Absolute Lymphs (auto) 1.4 (1.0-4.8) 10^3/ul Absolute Monos (auto) 0.6 (0-0.8) 10^3/ul Absolute Eos (auto) 0.1 (0-0.6) 10^3/ul Absolute Basos (auto) 0.2 (0-0.2) 10^3/ul Absolute Nucleated RBC 0 10^3/ul Nucleated RBC % 0.1 INR (Anticoag Therapy) 0.86 (0.77-1.02) APTT 26.5 (26.0-36.3) seconds Sodium 139 (135-145) mmol/L Potassium 3.6 (3.5-5.0) mmol/L Chloride 104 (101-111) mmol/L Carbon Dioxide 28 (22-32) mmol/L Anion Gap 7 (2-11) mmol/L BUN 19 (6-24) mg/dL Creatinine 0.67 (0.51-0.95) mg/dL Est GFR ( Amer) 101.2 (>60) Est GFR (Non-Af Amer) 83.7 (>60) BUN/Creatinine Ratio 28.4 H (8-20) Glucose 102 H (70-100) mg/dL Lactic Acid (0.5-2.0) mmol/L Calcium 9.5 (8.6-10.3) mg/dL Total Bilirubin 0.60 (0.2-1.0) mg/dL AST 31 (13-39) U/L ALT 29 (7-52) U/L Alkaline Phosphatase 86 (34-104) U/L Troponin I 0.01 (<0.04) ng/mL Total Protein 7.2 (6.4-8.9) g/dL Albumin 3.9 (3.2-5.2) g/dL Globulin 3.3 (2-4) g/dL Albumin/Globulin Ratio 1.2 (1-3) Triglycerides 168 mg/dL Cholesterol 186 mg/dL LDL Cholesterol 100 mg/dL HDL Cholesterol 52.6 mg/dL Urine Color Urine Appearance Urine pH (5-9) Ur Specific [place] (1.010-1.030) Urine Protein (Negative) Urine Ketones (Negative) Urine Blood (Negative) Urine Nitrate (Negative) Urine Bilirubin (Negative) Urine Urobilinogen (Negative) Ur Leukocyte Esterase (Negative) Urine WBC (Auto) (Absent) Urine RBC (Auto) (Absent) Ur Squamous Epith Cells (Absent) Urine Bacteria (Absent) Urine Glucose (Negative) Blood Type Antibody Screen 10/04/17 10/04/17 10/04/17 Range/Units 06:31 06:31 08:19 WBC (3.5-10.8) 10^3/ul RBC (4.00-5.40) 10^6/ul Hgb (12.0-16.0) g/dl Hct (35-47) % MCV (80-97) fL MCH (27-31) pg MCHC (31-36) g/dl RDW (10.5-15) % Plt Count (150-450) 10^3/ul MPV (7.4-10.4) um3 Neut % (Auto) (38-83) % Lymph % (Auto) (25-47) % [place] % (Auto) (0-7) % Eos % (Auto) (0-6) % Baso % (Auto) (0-2) % Absolute Neuts (auto) (1.5-7.7) 10^3/ul Absolute Lymphs (auto) (1.0-4.8) 10^3/ul Absolute Monos (auto) (0-0.8) 10^3/ul Absolute Eos (auto) (0-0.6) 10^3/ul Absolute Basos (auto) (0-0.2) 10^3/ul Absolute Nucleated RBC 10^3/ul Nucleated RBC % INR (Anticoag Therapy) (0.77-1.02) APTT (26.0-36.3) seconds Sodium (135-145) mmol/L Potassium (3.5-5.0) mmol/L Chloride (101-111) mmol/L Carbon Dioxide (22-32) mmol/L Anion Gap (2-11) mmol/L BUN (6-24) mg/dL Creatinine (0.51-0.95) mg/dL Est GFR ( Amer) (>60) Est GFR (Non-Af Amer) (>60) BUN/Creatinine Ratio (8-20) Glucose (70-100) mg/dL Lactic Acid 1.1 (0.5-2.0) mmol/L Calcium (8.6-10.3) mg/dL Total Bilirubin (0.2-1.0) mg/dL AST (13-39) U/L ALT (7-52) U/L Alkaline Phosphatase (34-104) U/L Troponin I (<0.04) ng/mL Total Protein (6.4-8.9) g/dL Albumin (3.2-5.2) g/dL Globulin (2-4) g/dL Albumin/Globulin Ratio (1-3) Triglycerides mg/dL Cholesterol mg/dL LDL Cholesterol mg/dL HDL Cholesterol mg/dL Urine Color Colorless Urine Appearance Clear Urine pH 8.0 (5-9) Ur Specific [place] 1.024 (1.010-1.030) Urine Protein Negative (Negative) Urine Ketones Negative (Negative) Urine Blood 1+ A (Negative) Urine Nitrate Negative (Negative) Urine Bilirubin Negative (Negative) Urine Urobilinogen Negative (Negative) Ur Leukocyte Esterase Negative (Negative) Urine WBC (Auto) Trace(0-5/hpf) (Absent) Urine RBC (Auto) Trace(0-2/hpf) (Absent) Ur Squamous Epith Cells Present A (Absent) Urine Bacteria Absent (Absent) Urine Glucose Negative (Negative) Blood Type O Positive Antibody Screen Negative Microbiology and Other Data: Microbiology 10/04/17 08:19 Urine Culture - Final Urine 10/04/17 09:43 Nasal Screen MRSA (PCR) - Final Nasal Mrsa Not Detected Assess/Plan/Problems-Billing . Assessment: 86 yo female with L sided weakness and working diagnosis of HTN-related emergency. MRI ordered to explore ischemic etiology; was negative for this. 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 - BP controlled -- target stage I HTN range. - continuing outpatient regimen with prn IV agents for acute control. - BP's have been well controlled 10/05 -- 10/06...no changes at discharge. (2) Hypertensive encephalopathy Current Visit: Yes Status: Acute Priority: High Code(s): I67.4 - HYPERTENSIVE ENCEPHALOPATHY Comment: - resolved with blood pressure control. - confusion resolved; now at baseline. (3) Altered mental status Current Visit: No Status: Chronic Priority: High Code(s): R41.82 - ALTERED MENTAL STATUS, UNSPECIFIED Comment: - worsening confusion and slurred speech - HTN control with prn IV agents - continue PO ARB, BB (4) HTN (hypertension) Current Visit: No Status: Chronic Priority: High Code(s): I10 - ESSENTIAL (PRIMARY) HYPERTENSION Comment: - target Stage I htn; lower in time. - continuing PO BB, ARB. (5) CVA (cerebral vascular accident) Current Visit: Yes Status: Suspected Priority: High Code(s): I63.9 - CEREBRAL INFARCTION, UNSPECIFIED Comment: - check MRI for better assessment of ischemic process -- 10/06: there was no ischemia. - holding ASA for h/o spontaneous ICH... - LDL 100; could start low dose empiric statin...though equivocal benefit...defer to outpatient setting.
--- NOTE | 2017-10-06 18:07 | DS ---
CC: Nurse practitionerMirela DISCHARGE SUMMARY: DATE OF ADMISSION: 10/04/17 DATE OF DISCHARGE: 10/07/17 STATUS DURING HOSPITALIZATION: Inpatient. PRIMARY CARE PROVIDER: KIP Riojas DISCHARGE DIAGNOSIS: Hypertensive emergency with hypertensive encephalopathy and altered mental status and unilateral weakness mimicking stroke - resolved with blood pressure control and MRI confirmed no ischemic changes. SECONDARY DIAGNOSES: 1. 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 2. Hypertension. 3. Urinary retention and frequent urinary tract infections. 4. History of coronary artery disease. 5. History of cataract surgery/hysterectomy. 6. Status post tonsillectomy. 7. History of falls. DISCHARGE MEDICATION REGIMEN: 1. Atenolol 50 mg by mouth daily. 2. Melatonin 3 mg by mouth q.h.s. 3. Omeprazole 20 mg by mouth daily. 4. Losartan 80 mg by mouth daily. 5. Ranitidine 300 mg by mouth daily. HISTORY OF PRESENT ILLNESS AND HOSPITAL COURSE: Please see the H and P by Dr. Artie Dunbar on 10/04/17. In brief, Ms. Gonzalez is a pleasantly confused 86-year-old female, who comes to us from [facility] in [place]. Around 4 a.m. the day of admission, she was observed to have "garbled speech" according to the staff at [facility] as well as an EMS note. 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 She was deemed unstable and was brought by EMS to the emergency room. A CT, noncontrast study , of her Brain showed no acute disease and there was no large vessel branch occlusion or aneurysm or stenosis via a CTA study. The patient was oriented only to person and place but not to time. She could move all extremities, but there was left extremity weakness. During her evaluation, her systolic blood pressure was noted to be greater than 200. She was controlled with IV hydralazine and IV beta-audrey therapy. The goal was for MAPs less than 100, but to keep them greater than 90 secondary to perfusion concerns. The patient is not on antiplatelet therapy secondary to her history of spontaneous intracranial hemorrhage. The patient was admitted to the telemetry unit. She subsequently had an MRI and this showed a hemosiderin deposits consistent with old intracranial hemorrhage, but neither an acute ischemic process nor an acute hemorrhagic process. The patient did progressively better in the hospitalization with blood pressure control. She required IV dosing on several occasions. She is being discharged on the same medication regimen, which can be considered for increase later, but at this time her systolics are in the 130 range. The patient is pleasantly confused. She knows that she lives in [facility], but cannot volunteer that information if asked. She is cleared for discharge from my perspective. She is certainly appropriate for that level of care. She is a DNR, and that was confirmed. The patient will not have any medication changes and can come back to the emergency room if there are any worrisome symptoms including but not limited to chest pain, shortness of breath , lightheadedness, focal neurologic deficits, dizziness, difficulty with eating , or any other worrisome symptoms. TIME SPENT: Total time taken to discharge Ms. Gonzalez was 40 minutes with greater than half of the time was spent going over the discharge instructions [id number] with the patient. CONDITION AT DISCHARGE: Stable. [id number]/[facility] #: [id number] DOUGLAS
[2017-10-06] MEDS: Melatonin 3 MG TAB PO SCH (20:35)
[2017-10-06] MEDS: Acetaminophen TAB* 325 MG PO PRN (20:35)
[2017-10-07 06:00] LABS: ABS Basophils 0.1 10^3/ul (0-0.2); ABS Eosinophils 0.3 10^3/ul (0-0.6); ABS Lymphocytes 1.7 10^3/ul (1.0-4.8); ABS Monocytes 0.8 10^3/ul (0-0.8); ABS Neutrophils 4.9 10^3/ul (1.5-7.7); ABS Nucleated RBC 0 10^3/ul; Eosinophil % 3.3 % (0-6); Hematocrit 34 % (35-47); Hemoglobin 11.5 g/dl (12.0-16.0); Lymphocyte % 21.8 % (25-47); Mean Corpuscular HGB Conc 34 g/dl (31-36); Mean Corpuscular Hemoglobin 30 pg (27-31); Mean Corpuscular Volume 88 fL (80-97); Mean Platelet Volume 9.1 um3 (7.4-10.4); Nucleated Red Blood Cells % 0; Platelet Count 316 10^3/ul (150-450); Red Blood Count 3.84 10^6/ul (4.00-5.40); Red Cell Distribution Width 15 % (10.5-15); White Blood Count 7.7 10^3/ul (3.5-10.8)
[2017-10-07] MEDS: Omeprazole CAP* 20 MG PO SCH ×2 (06:01→06:34)
[2017-10-07] MEDS ORDERED: Potassium Chloride LIQUID* 20 MEQ PACKET PO SCH (09:00)
[2017-10-07 09:37] VITALS: BP 129/59
[2017-10-07] MEDS: Atenolol TAB* 50 MG PO SCH (09:37)
[2017-10-07] MEDS: Heparin VIAL(*) 5000 UNITS/ML VIAL (FIVE THOUSAND) SUBCUT SCH (09:38)
[2017-10-07] MEDS: Valsartan TAB* 80 MG PO SCH (09:38)
--- NOTE | 2017-10-07 13:00 | PN ---
Hospitalist Progress Note Date of Service: 10/07/17 . HOSPITALIST DISCHARGE NOTE: See dc instructions and summary by me. Patient stable for dc dc instructions reviewed with the patient at the bedside. DC patient back to [facility] today.
== END 2017-10-07 14:54 | DRG 305 ==
LOC: ED 05:53 → MEDTELE 09:31
PROVIDERS: ADMIT Student in an Organized Health Care Education/Training Program; ATTEND Internal Medicine
DX: I16.0 Hypertensive urgency (principal); I67.4 Hypertensive encephalopathy; I69.154 Hemiplegia and hemiparesis following nontraumatic intracerebral hemorrhage affecting left non-dominant side; I11.9 Hypertensive heart disease without heart failure; R33.9 Retention of urine, unspecified; G47.00 Insomnia, unspecified; Z66 Do not resuscitate; Z87.440 Personal history of urinary (tract) infections; Z79.899 Other long term (current) drug therapy; Z88.2 Allergy status to sulfonamides; Z88.8 Allergy status to other drugs, medicaments and biological substances
CPT/HCPCS: 36415; 70450; 70496; 70498; 70551; 71045; 80048; 80053; 80061; 81003; 81015; 83605; 83735; 84100; 84484; 85025; 85610; 85730; 86850; 86900; 86901; 87086; 87641; 93005; 93306; 99285; A9270-GY; G8978-GP-CL; G8979-GP-CK; G8979-GP-CL; J1630; J1644; J3475; J3490; Q9967

== ENCOUNTER 2018-01-30 13:13 | Inpatient (IN) | payer MEDICARE, OTHER ==
[2018-01-30] MEDS ORDERED: NS 0.9% 1000 ML* 1,000 ML IV ONE (13:19)
--- NOTE | 2018-01-30 13:32 | ED ---
Neurological HPI - HPI Summary HPI Summary: Level 5 caveat: Unable to obtain complete HPI due to AMS The pt is an 87 y/o [place] [facility] c/o neurological deficits since 1200 hrs today. She arrives from [facility] in [place]. EMS reports R sided facial droop, R sided weakness, FISHER and HTN reaching 197/104 en route. The finger stick blood glucose was 118 mg/dL. - History of Current Complaint Stated Complaint: CODE PARRA Hx Obtained From: EMS Onset/Duration: Sudden Onset - 1200 hrs today, Still Present Timing: Sudden Onset Neurological Deficit Location: Generalized - R sided, Facial, RUE, RLE Headache Location: Diffuse (Right) - Additional Pertinent History Primary Care Physician: [id number] - Allergy/Home Medications Allergies/Adverse Reactions: Allergies Allergy/AdvReac Type Severity Reaction Status Date / Time amitriptyline Allergy Unknown Verified 10/04/17 06:26 Reaction Details nitrofurantoin Allergy Unknown Verified 10/04/17 06:26 Reaction Details Home Medications: Home Medications Acetaminophen TAB* [Tylenol TAB*] 650 mg PO Q4H PRN 01/30/18 [History Confirmed 01/30/18] Al Hydrox/Mg Hydrox/Simet LIQ* [Maalox Plus*] 15 ml PO Q4H PRN 01/30/18 [ History Confirmed 01/30/18] Atenolol TAB* [Tenormin TAB* 50 MG] 50 mg PO DAILY 01/30/18 [History Confirmed 01/30/18] Bismuth Subsalicylate [[place] Bismuth] 15 ml PO Q4HR PRN 01/30/18 [History Confirmed 01/30/18] Lactose-Reduced Food [Ensure Liquid] 237 ml PO BID 01/30/18 [History Confirmed 01/30/18] Losartan TAB* [Cozaar TAB*] 50 mg PO DAILY 01/30/18 [History Confirmed 01/30/18] Magnesium Hydroxide LIQ* [Milk of Magnesia LIQ*] 30 ml PO DAILY PRN 01/30/18 [ History Confirmed 01/30/18] Sertraline* [Zoloft*] 25 mg PO DAILY 01/30/18 [History Confirmed 01/30/18] guaiFENesin ER TAB [Mucinex*] 600 mg PO BID 01/30/18 [History Confirmed 01/30/18 ] guaiFENesin LIQ* [Robitussin*] 10 ml PO Q4H PRN 01/30/18 [History Confirmed ] PMH/Surg Hx/FS Hx/Imm Hx Previously Healthy: No Endocrine/Hematology History: Denies: Hx Diabetes Cardiovascular History: Reports: Hx Coronary Artery Disease, Hx Hypertension, Other Cardiovascular Problems/Disorders - CABG Denies: Hx Pacemaker/ICD Respiratory History: Denies: Hx Chronic Obstructive Pulmonary Disease (COPD), Hx Lung Cancer GI History: Reports: Hx Gastroesophageal Reflux Disease Denies: Other GI Disorders History: Reports: Other Problems/Disorders - davis placed here r/t inability to urinate Denies: Hx Dialysis Musculoskeletal History: Reports: Other Musculoskeletal History - L SIDED WEAKNESS Denies: Hx Back Problems Sensory History: Reports: Hx Cataracts, Hx Contacts or Glasses Denies: Hx Hearing Aid Opthamlomology History: Reports: Hx Cataracts, Hx Contacts or Glasses Neurological History: Reports: Other Neuro Impairments/Disorders - CVA Denies: Hx Dementia, Hx Seizures Psychiatric History: Denies: Hx Panic Disorder - Cancer History Cancer Type, Location and Year: basal cell carcinoma 2001 - Surgical History Surgery Procedure, Year, and Place: bladder tuck 1995, left and right cataracts , basal cell carcinoma 2001, small bowel resection 2005, heart cath 2005, HYSTERECTOMY Hx Anesthesia Reactions: No - Family History Known Family History: Negative: Diabetes - Social History Occupation: Retired Lives: Assisted Living - Lives at [place], [place] with Alcohol Use: None Substance Use Type: Reports: None Smoking Status (MU): Never Smoked Tobacco - Additional Comments History Additional Comments: Level 5 caveat: Unable to obtain complete PMhx due to AMS Review of Systems - ROS Summary Review of Systems Summary: Level 5 caveat: Unable to obtain complete ROS due to AMS Positive: Other - Positive: HTN Neurological: Other - Positive: R sided facial droop Positive: Weakness - R sided All Other Systems Reviewed And Are Negative: No Physical Exam - Summary Physical Exam Summary: Level 5 caveat: Unable to obtain complete PE due to AMS Appearance: The patient is well-nourished in no acute distress and in no acute pain. Skin: The skin is warm and dry and skin color reflects adequate perfusion. HEENT: The head is normocephalic and atraumatic. The pupils are equal and reactive. The conjunctivae are clear and without drainage. Nares are patent and without drainage. Mouth reveals moist mucous membranes and the throat is without erythema and exudate. The external ears are intact. The ear canals are patent and without drainage. The tympanic membranes are intact. Neck: The neck is supple with full range of motion and non-tender. There are no carotid bruits. There is no neck vein distension. Respiratory: Chest is non-tender. Lungs are clear to auscultation and breath sounds are symmetrical and equal. Cardiovascular: Heart is regular rate and rhythm. There is no murmur or rub auscultated. There is no peripheral edema and pulses are symmetrical and equal. Abdomen: The abdomen is soft and non-tender. There are normal bowel sounds heard in all four quadrants and there is no organomegaly palpated. Musculoskeletal: There is no back tenderness noted. Extremities are non-tender with full range of motion. There is good capillary refill. There is no peripheral edema or calf tenderness elicited. Neurological: See the CAROLIN stroke scale Psychiatric: The patient has an appropriate affect and does not exhibit any anxiety or depression. GCS: 15 Triage Information Reviewed: Yes Vital Signs On Initial Exam: Initial Vital Signs Pulse 82 01/30/18 13:29 Resp 17 01/30/18 13:29 Vital Signs Reviewed: Yes Diagnostics - Laboratory Result Diagrams: 01/30/18 13:27 01/30/18 13:27 Lab Statement: Any lab studies that have been ordered have been reviewed, and results considered in the medical decision making process. - Radiology CXR Radiology Interpretation Completed By: Radiologist - IMPRESSION: HYPERINFLATION. NO ACTIVE CARDIOPULMONARY DISEASE. The ED physician reviewed this radiology report. - CT Brain CT CT Interpretation Completed By: Radiologist - IMPRESSION: Chronic findings include symmetrical involutional changes and evidence of microvascular disease similar in appearance to the October 04, 2017 CT of the brain. There is no acute intracranial hemorrhage identified. The ED physician reviewed this radiology report. - EKG 13:27 Cardiac Rate: NL - 77 bpm EKG Rhythm: Sinus Rhythm EKG Interpretation: Nonspecific anterolateral changes Course/Dx - Course Course Of Treatment: Ms. Gonzalez was brought in by ambulance. The ambulance reported that at 1225 she was in the company of a nurse at the detention and the nurse saw her become a phasic and weak on the left side. She was transported in and a code parra was called prior to arrival here. On my initial evaluation, she was noted to be weak on the left side of both upper and lower extremities with dysmetria out of proportion to the weakness. She had a mild right lower facial droop. She believed that it was the end of October. She was not able to adequately describe the pictures. A CT was immediately obtained, bloods were sent to the lab and I consulted with of neurology. She came to the emergency department and evaluated the patient in room 14. By that time I had reviewed the old records which shows that the patient had a previous intracranial hemorrhage which has left her with residual left-sided weakness. Additionally she has presented to the emergency department with hypertensive encephalopathy mimicking a CVA. Dr. Olmos felt that this was hypertensive encephalopathy today and she is being admitted by the hospitalist service after a CTA is obtained. 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 Olmos suspects that this could be a case of hypertensive encephalopathy. She agreed to see the pt in the ED Discharge - Sign-Out/Discharge Documenting (check all that apply): Patient Departure - Admit - Discharge Plan Condition: Improved Disposition: ADMITTED TO [facility] - Billing Disposition and Condition Condition: IMPROVED Disposition: Admitted to [facility] - Attestation Statements Document Initiated by Scribe: Yes Documenting Scribe: Carlotta Zamudio Provider For Whom Brandy is Documenting (Include Credential): Dr. Nehemias Fontaine MD Scribe Attestation: I, Carlotta Zamudio , scribed for Dr. Nehemias Fontaine MD on 01/30/18 at 1804. Scribe Documentation Reviewed: Yes Provider Attestation: The documentation as recorded by the Carlotta esqueda accurately reflects the service I personally performed and the decisions made by me, Dr. Nehemias Fontaine MD
--- NOTE | 2018-01-30 13:36 | RAD ---
INDICATION: Left-sided contraction in a patient with a history of previous stroke COMPARISON: CT the brain October 04, 2017 TECHNIQUE: Contiguous axial sections of the brain were obtained from the skull base to the vertex without contrast. FINDINGS: The ventricles, cisterns and sulci exhibit symmetrical involutional changes similar in appearance to the prior CT of the brain. There is moderate periventricular and subcortical white matter hypoattenuation similar in appearance to the previous CT of the brain most consistent with chronic microvascular disease. The rascon-white matter differentiation is otherwise adequately maintained and there is no sulcal effacement. No significant focal abnormality or mass effect is present. There is no evidence for intracranial hemorrhage. No significant focal osseous abnormality is present. The visualized portion of the paranasal sinuses appear clear. The mastoid air cells are well aerated bilaterally. IMPRESSION: Chronic findings include symmetrical involutional changes and evidence of microvascular disease similar in appearance to the October 04, 2017 CT of the brain. There is no acute intracranial hemorrhage identified. Findings were reported to Dr. Fontaine over the telephone at 1330 hours on January 30, 2018.
[2018-01-30 13:39] LABS: ABS Basophils 0.1 10^3/ul (0-0.2); ABS Eosinophils 0.3 10^3/ul (0-0.6); ABS Lymphocytes 1.7 10^3/ul (1.0-4.8); ABS Monocytes 0.8 10^3/ul (0-0.8); ABS Nucleated RBC 0 10^3/ul; Eosinophil % 4.4 % (0-6); Hematocrit 36 % (35-47); Hemoglobin 12.2 g/dl (12.0-16.0); Lymphocyte % 25.1 % (25-47); Mean Corpuscular HGB Conc 34 g/dl (31-36); Mean Corpuscular Hemoglobin 29 pg (27-31); Mean Corpuscular Volume 87 fL (80-97); Mean Platelet Volume 8.2 um3 (7.4-10.4); Nucleated Red Blood Cells % 0; Platelet Count 392 10^3/ul (150-450); Red Blood Count 4.21 10^6/ul (4.00-5.40); Red Cell Distribution Width 15 % (10.5-15); White Blood Count 6.9 10^3/ul (3.5-10.8)
[2018-01-30 13:54] LABS: INR 0.86 (0.77-1.02)
--- NOTE | 2018-01-30 14:08 | RAD ---
HISTORY: Neurological Changes/Code Spencer COMPARISONS: October 04, 2017 VIEWS: 1: frontal AP view of the chest at 1:50 PM FINDINGS: LINES AND TUBES: None. CARDIOMEDIASTINAL SILHOUETTE: The cardiomediastinal silhouette is normal for portable technique. PLEURA: The costophrenic angles are sharp. No pleural abnormalities are noted. LUNG PARENCHYMA: There is hyperinflation. ABDOMEN: The upper abdomen is clear. There is no subphrenic gas. BONES AND SOFT TISSUES: No bone or soft tissue abnormalities are noted. IMPRESSION: HYPERINFLATION. NO ACTIVE CARDIOPULMONARY DISEASE.
--- NOTE | 2018-01-30 14:42 | CONSULT ---
Consult Consult: NEUROLOGY CONSULTATION Reason for Consult: altered mental status and left sided weakness Time Called: 1.20pm Time of onset/last seen normal: 12.25pm Time of evaluation: 1.25pm HPI: This is an 87 yr old woman with history of hemorrhagic stroke in 2013 with left sided weakness and hypertension presenting with altered mental status and left sided weakness. Patient does have residual left sided weakness after the stroke. The patient was noted to be hypertensive at 234/106 on presentation. The patient was complaining of a headache at the time of examination. She has prior admissions for hypertensive encephalopathy. PAST MEDICAL AND SURGICAL HISTORY: Intracranial hemorrhage, spontaneous in 2013 with residual left-sided weakness; hypertension; history of urinary retention and frequent UTIs; history of coronary artery disease; history of cataract surgery and hysterectomy; status post tonsillectomy; history of falls. MEDS: Omeprazole CAP* [Prilosec CAP* 20 MG] 20 mg PO DAILY 10/04/17 [History Confirmed 01/30/18] Acetaminophen TAB* [Tylenol TAB*] 650 mg PO Q4H PRN 01/30/18 [History Confirmed 01/30/18] Al Hydrox/Mg Hydrox/Simet LIQ* [Maalox Plus*] 15 ml PO Q4H PRN 01/30/18 [ History Confirmed 01/30/18] Atenolol TAB* [Tenormin TAB* 50 MG] 50 mg PO DAILY 01/30/18 [History Confirmed 01/30/18] Bismuth Subsalicylate [[place] Bismuth] 15 ml PO Q4HR PRN 01/30/18 [History Confirmed 01/30/18] Lactose-Reduced Food [Ensure Liquid] 237 ml PO BID 01/30/18 [History Confirmed 01/30/18] Losartan TAB* [Cozaar TAB*] 50 mg PO DAILY 01/30/18 [History Confirmed 01/30/18] Magnesium Hydroxide LIQ* [Milk of Magnesia LIQ*] 30 ml PO DAILY PRN 01/30/18 [ History Confirmed 01/30/18] Sertraline* [Zoloft*] 25 mg PO DAILY 01/30/18 [History Confirmed 01/30/18] guaiFENesin ER TAB [Mucinex*] 600 mg PO BID 01/30/18 [History Confirmed 01/30/18 ] guaiFENesin LIQ* [Robitussin*] 10 ml PO Q4H PRN 01/30/18 [History Confirmed ] ALLERGIES: AMITRIPTYLINE and NITROFURANTOIN and possible SULFA MEDICATIONS. FAMILY HISTORY: Noncontributory. SOCIAL HISTORY: Denied any tobacco, alcohol or drug use. She is retired and currently a resident of [facility]. Review of systems: unreliable due to patient condition Physical Examination Vitals Vital Signs Temp 97.8 F 01/30/18 14:12 Pulse 91 01/30/18 14:12 Resp 13 01/30/18 14:12 BP 198/80 01/30/18 14:36 Pulse Ox 97 01/30/18 14:12 Gen- NAD Neck: full ROM HEENT- neck supple; no nuchal rigidity; pharynx clear without exudate Symmetric Chest rise and fall with respiratory effort Abdomen soft, non-tender Mental Status: Alert, oriented to self, month and place Cranial Nerves : Pupils are equal, round, and reactive to light; visual acuity is intact in each eye; visual cancino are full to confrontation; Extra-ocular movements are intact without restriction of excursion; no nystagmus; face mildly asymmetric, tongue midline Motor: left hand and foot contracted, left arm and leg proximally 4+/5 right arm and leg strength 5/5 Sensation: decreased to light touch in the left face arm and leg Coordination : finger to nose intact, dysmetric on left NIH Stroke Scale 1a Level of consciousness: 0 1b. LOC questions: 0 1c. LOC commands: 0 2. Best Gaze:0 3. Visual: 0 4. Facial Palsy: 1 5a. Motor left arm: 1 5b. Motor right arm: 0 6a. motor left le 6b Motor right le 7. Limb Ataxia: 1 8. Sensory: 1 9. Best Language: 0 10. Dysarthria: 0 11. Extinction and Inattention: 1 Total: 6 Imaging: All Neuroimaging reviewed personally by me as well as Neuroradiology CT Head: IMPRESSION: Chronic findings include symmetrical involutional changes and evidence of microvascular disease similar in appearance to the October 04, 2017 CT of the brain. There is no acute intracranial hemorrhage identified. Impression: Hypertensive Encephalopathy Plan: Manage blood pressures Recent admission and stroke workup including CTA and Echo in September Will follow up as needed
[2018-01-30] MEDS ORDERED: QUEtiapine XR TAB* 50 MG PO ONE (15:38)
[2018-01-30] MEDS ORDERED: LORazepam INJ* 2 MG/ML 1 ML VIAL IV ONE (15:39)
[2018-01-30] MEDS ORDERED: Labetalol IV* 5 MG/ML 20 ML VIAL IV PUSH ONE (16:16)
[2018-01-30] MEDS ORDERED: LORazepam INJ* 2 MG/ML 1 ML VIAL IV PUSH ONE (16:27)
[2018-01-30] MEDS ORDERED: niCARdipine 0.1MG/ML IVPREMIX* 20 MG/200 ML BAG IV SCH (17:00)
--- NOTE | 2018-01-30 17:09 | PN ---
Subjective Length of Stay: 1 Days Neurology is following [] for the evaluation and management of [] Interval History: Patient had an acute change noted at 3.20 pm. She stated that she had to use the bathroom and then had a large bowel movement and was afterwards noted to becoe aphasic with a left gaze deviation and left arm and leg stiffness. When I arrived at the bedside the patient was producing sounds without an intelligible speech, with a left gaze deviation that could not be overcome however able to move her left arm and leg. BP was noted to be elevated 219/188. Labetolol was give. Stat HCT was performed which upon my review showed no hemorrhage. CTA was which showed no large vessel occlusion. Family History: Unchanged from Admission Social History: Unchanged from Admission Past Medical History: Unchanged from Admission Objective Vital Signs 01/30/18 01/30/18 01/30/18 13:29 13:31 13:33 Temperature 97.5 F Pulse Rate 82 79 Respiratory 17 31 18 Rate Blood Pressure 213/113 234/106 (mmHg) O2 Sat by Pulse 97 Oximetry 01/30/18 01/30/18 01/30/18 14:00 14:12 14:36 Temperature 97.8 F Pulse Rate 91 Respiratory 26 13 Rate Blood Pressure 213/113 198/80 (mmHg) O2 Sat by Pulse 97 Oximetry 01/30/18 01/30/18 01/30/18 15:00 15:43 16:00 Temperature Pulse Rate 87 96 Respiratory 16 20 18 Rate Blood Pressure (mmHg) O2 Sat by Pulse 95 94 Oximetry 01/30/18 01/30/18 01/30/18 16:06 16:17 16:39 Temperature Pulse Rate 96 Respiratory 19 18 Rate Blood Pressure 219/188 185/110 (mmHg) O2 Sat by Pulse 93 Oximetry Oxygen Devices in Use Now: None Result Diagrams: 02/03/18 05:18 02/03/18 05:18 Assessment/Plan Not a TPA or endovascular candidate Presumed seizure EEG and antiepileptics
[2018-01-30] MEDS ORDERED: Iodixanol 320 (CONTRAST) 100 ML SDV IV ONE (17:18)
[2018-01-30] MEDS ORDERED: NS 0.9% IVPB ONE (17:26)
[2018-01-30] MEDS ORDERED: FOSPHENYTOIN IVPB ONE (17:26)
--- NOTE | 2018-01-30 17:27 | RAD ---
HISTORY: Worsening mental status, concern for bleed COMPARISONS: January 30, 2013 at 1:27 PM TECHNIQUE: Multiple contiguous axial CT scans were obtained of the head without intravenous contrast. FINDINGS: The study is limited by patient motion artifact. HEMORRHAGE/INFARCT: There is no hemorrhage or acute infarct. MASSES/SHIFT: There is no mass or shift. EXTRA-AXIAL SPACES: There are no extra-axial fluid collections. SULCI AND VENTRICLES: There is diffuse and proportional enlargement of the sulci and ventricles. CEREBRUM: There is hypoattenuation of the periventricular and subcortical white matter. BRAINSTEM: There are no focal parenchymal abnormalities. CEREBELLUM: There are no focal parenchymal abnormalities. VESSELS: The vessels are grossly normal. PARANASAL SINUSES: The paranasal sinuses are clear. ORBITS: The orbits are unremarkable. BONES AND SOFT TISSUE: No bone or soft tissue abnormalities are noted. OTHER: None IMPRESSION: NO ACUTE INTRACRANIAL PATHOLOGY. DIFFUSE INVOLUTIONAL CHANGE WITH CHRONIC SMALL VESSEL ISCHEMIC CHANGES.
--- NOTE | 2018-01-30 17:48 | RAD ---
HISTORY: stroke COMPARISONS: Head CT dated January 30, 2018, CT dated October 04, 2017 TECHNIQUE: Multiple contiguous axial CT scans were obtained of the head and neck after the administration of nonionic intravenous contrast timed to the systemic arterial phase of contrast enhancement. Coronal and sagittal multiplanar reformations are submitted for review. Multiple 3-D maximum intensity projection reconstructions are also submitted for review. FINDINGS: CTA NECK: AORTIC ARCH: There is a normal three-vessel branching pattern of the aortic arch. There is no ostial or proximal stenosis of the cephalic great vessels. RIGHT VERTEBRAL ARTERY: The right vertebral artery is patent along its course, without stenosis. LEFT VERTEBRAL ARTERY: The left vertebral artery is patent along its course, without stenosis. DOMINANCE: The vertebral arteries are codominant. RIGHT COMMON CAROTID ARTERY: The right common carotid artery is patent. The right carotid bifurcation occurs at C4-C5 RIGHT INTERNAL CAROTID ARTERY: There is atheromatous disease of the right carotid bifurcation, without right internal carotid artery stenosis by NASCET criteria. RIGHT EXTERNAL CAROTID ARTERY: The right external carotid artery is unremarkable. LEFT COMMON CAROTID ARTERY: The left common carotid artery is patent. The left carotid bifurcation occurs at C5-C6 LEFT INTERNAL CAROTID ARTERY: There is atheromatous disease of the left carotid bifurcation, without left internal carotid artery stenosis by NASCET criteria. LEFT EXTERNAL CAROTID ARTERY: The left external carotid artery is unremarkable. VENOUS CIRCULATION: The venous system is unremarkable. SALIVARY GLANDS: The parotid glands, submandibular glands, sublingual glands are normal. NASAL CAVITY/NASOPHARYNX: The nasal cavity and nasopharynx are normal. ORAL CAVITY/OROPHARYNX: The oral cavity is obscured by streak artifact from dental amalgam. The visualized oral cavity and oropharynx are unremarkable. LARYNGEAL APPARATUS/HYPOPHARYNX: The laryngeal apparatus and hypopharynx are normal. UPPER AIRWAY/UPPER ESOPHAGUS: The visualized upper airway and esophagus are normal. LUNG APICES: The lung apices are clear. THYROID GLAND: The thyroid is small and heterogeneous. LYMPH NODES: There is no lymphadenopathy by size criteria. BONES AND SOFT TISSUES: No bone or soft tissue abnormalities are noted. CTA HEAD: INTRACRANIAL CIRCULATION: There is an azygos configuration of the A2 segments of the anterior cerebral arteries. Elsewhere, there is no aneurysm, vascular malformation, occlusion, or stenosis of the visualized intracranial circulation. The anterior communicating artery complex is clear. The posterior communicating arteries are diminutive, if present. VENOUS CIRCULATION: The venous system is unremarkable. PERFUSION: There is no obvious parenchymal perfusion deficit. HEMORRHAGE/INFARCT: There is no hemorrhage or acute infarct. MASSES/SHIFT: There is no mass or shift. EXTRA-AXIAL SPACES: There are no extra-axial fluid collections. SULCI AND VENTRICLES: There is diffuse and proportional enlargement of the sulci and ventricles. CEREBRUM: There is hypoattenuation of the periventricular and subcortical white matter. BRAINSTEM: There are no focal parenchymal abnormalities. CEREBELLUM: There are no focal parenchymal abnormalities. PARANASAL SINUSES: The paranasal sinuses are clear. ORBITS: The orbits are unremarkable. BONES AND SOFT TISSUE: Mild degenerative changes are noted. OTHER: There is no abnormal enhancement. IMPRESSION: 1. ATHEROSCLEROSIS. 2. NO INTERNAL CAROTID ARTERY STENOSIS BY NASCET CRITERIA. 3. NO ANEURYSM, VASCULAR MALFORMATION, OCCLUSION, OR STENOSIS OF THE VISUALIZED INTRACRANIAL CIRCULATION. CPT II Codes: 3100F.
[2018-01-30 18:30] LABS: Urine Appearance Clear; Urine Blood 1+ (Negative); Urine Color Straw; Urine Ketones Negative (Negative); Urine Protein 2+(100 mg/dL) (Negative); Urine Red Blood Cell 2+(6-10/hpf) (Absent); Urine Specific Gravity 1.013 (1.010-1.030); Urine Urobilinogen Negative (Negative); Urine White Blood Cell Trace(0-5/hpf) (Absent)
[2018-01-30] MEDS ORDERED: LORazepam INJ* 2 MG/ML 1 ML VIAL IV PUSH PRN (20:36)
[2018-01-30] MEDS: NS 0.9% 1000 ML* 1,000 ML IV SCH (21:41)
--- NOTE | 2018-01-30 21:46 | HP ---
CC: Providers at [facility], Radha Dietz NP * HOSPITAL MEDICINE HISTORY AND PHYSICAL: DATE OF ADMISSION: 01/30/18 PRIMARY CARE PROVIDER: Radha Dietz NP, [facility]. ATTENDING PHYSICIAN: Dr. Reji Cherry * (dictation provided by Danae Whitman NP). CHIEF COMPLAINT: Left-sided weakness, slurred speech, altered mental status. HISTORY OF PRESENT ILLNESS: Ms. 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 Ms. Gonzalez is not able to provide any information today as she is nonverbal at the time of my assessment. I did call the staff at [facility] and was told that at baseline, the patient uses a wheelchair and transfers independently. At baseline, she is alert, oriented, and has only minimal memory issues. Today, the patient was noted to have left-sided weakness and slurred speech and therefore was brought to the hospital for evaluation. In the emergency room, she did have left-sided weakness and the aforementioned slurred speech. Her blood pressure was very elevated with systolic blood pressure [address] A [address] brain was negative for acute change, no evidence of hemorraghic CVA. She was seen in consultation by the neurologist, who suspect that she had hypertensive encephalopathy. Thereafter, the patient was very agitated attempting to get out of the bed and flailing. She was given Ativan with some improvement in her symptoms and though not reflected by blood pressures noted in the EMR, nursing staff report that manually blood pressures did improve. I assessed the patient at approximately 04:15 and found that she had a left-sided gaze deviation and appeared to be posturing with a rhythmic muscular contractions, very suspicious for a possible seizure or perhaps hemorrhagic CVA. I updated Dr. Olmos and management is underway with plans for labetalol x 1, ativan x 1, repeat CT brain now, and EEG. Ms. Gonzalez's workup thus far has showed CT brain that showed "chronic findings include symmetrical involutional changes and evidence of microvascular diseases similar in appearance to 10/04/17 CT of the brain. There is no acute intracranial hemorrhage identified." She had a chest x-ray that showed hyperinflation and no active cardiopulmonary disease. Her labs were unremarkable. PAST MEDICAL HISTORY: 1. Recent admission, 10/04/17 to 10/06/17, with hypertensive encephalopathy. Her blood pressure improved during the hospitalization with medication, but ultimately by the time of discharge, she had systolic blood pressures in the 130s and no medication regimen changes were undertaken. 2. 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 3. Hypertension. 4. History of urinary retention and frequent UTIs. 5. History of coronary artery disease. 6. History of cataract surgery and hysterectomy. 7. History of hysterectomy. 8. Status post tonsillectomy. 9. History of falls. MEDICATIONS: Per the report from [facility] are: 1. [place] bismuth subsalicylate 15 mL p.o. q.4 hours p.r.n. 2. Maalox plus 15 mL p.o. q.4 hours p.r.n. 3. Guaifenesin ER 600 mg p.o. b.i.d. 4. Tylenol 650 mg p.o. q.4 hours p.r.n. 5. Guaifenesin liquid 10 mL p.o. q.4 hours p.r.n. 6. Magnesium hydroxide 30 mL p.o. daily p.r.n. 7. Sertraline 25 mg p.o. daily. 8. Losartan 50 mg p.o. daily. 9. Omeprazole 20 mg p.o. daily. 10. Ensure liquid 237 mL p.o. b.i.d. 11. Atenolol 50 mg p.o. daily. ALLERGIES: AMITRIPTYLINE and NITROFURANTOIN. FAMILY HISTORY: Unobtainable. SOCIAL HISTORY: Unobtainable. REVIEW OF SYSTEMS: Unobtainable. PHYSICAL EXAMINATION GENERAL: Ms. Gonzalez is a elderly female examined in the ED stretcher. NEUROLOGICAL: She has a forced gaze deviations to the left and is nonverbal. She is not responsive to any commands. She appears to have posturing with rigid extension of bilateral upper and lower extremities. I also notice slight generalized rhythmic involuntary muscular contractions. VITAL SIGNS: Temperature 97.8, pulse rate 91, respiratory rate 13, O2 saturation 97% on room air, blood pressure 198/80. LUNGS: Clear to auscultation bilaterally. HEART: S1, S2. No murmur, rub, or gallop. ABDOMEN: Soft, nontender with bowel sounds positive x4. EXTREMITIES: No cyanosis. No edema. SKIN: Intact. DIAGNOSTIC STUDIES/LAB DATA: Sodium 142, potassium 3.2, chloride 104, serum bicarbonate 31, BUN 14, creatinine 0.64, glucose 122. WBC 6.9, hemoglobin 12.2 , hematocrit 36, platelet count 392. INR is 0.86. CT brain is as read per above. Chest x-ray is as read per above. EKG shows a sinus rhythm with heart rate of 70. No evidence of overt ischemia. ASSESSMENT AND PLAN: Ms. Gonzalez is an 87-year-old female with past medical history of spontaneous hemorrhagic cerebrovascular accident in 2013 as well as recent admission to our hospital for hypertensive encephalopathy earlier this year, who presents today to the hospital with initially a left-sided weakness and slurred speech followed by agitation and now forced gaze deviation and posturing concerning for perhaps a new cerebrovascular accident or seizure disorder. Our plans are for inpatient admission to the intensive care unit for the followin. Altered mental status: Based on the overall presentation, I am concerned and the fact that she has had acute change in the ED that she could have an acute cerebrovascular accident or hemorrhage. Plan for CT brain now. Dr. Olmos is at the bedside. I am also concerned that perhaps the patient is having seizure now. I have given additional dose of Ativan and EEG is pending on her return from the CT scan. It is also likely that her symptoms are related to uncontrolled hypertensive and PRES. She has had one dose of labetalol here and we will continue after that with a nicardipine drip. Her goal blood pressure will be between 140 and 160 systolically to allow for permissive hypertension and slow return to normal BP. 2. Hypertension. Plan to hold her oral medications as she is not able to take p.o. at this point. She will have nicardipine drip. 3. History of urinary retention with frequent urinary tract infections. A Medina has been placed and urinalysis is pending. 4. Code status is DNR, I am not able to confirm this with the patient as she is nonverbal at this time, but this was completed in September of this year. 5. Disposition: To ICU. TIME SPENT: Approximately 60 minutes were spent on the admission of this patient, more than half the time spent with the patient at the bedside reviewing the events leading up to this hospitalization, performing the physical examination, and reviewing the plan of care. DANAE WHITMAN NP [id number]/[facility] #: [id number] [place]
[2018-01-30] MEDS: LORazepam INJ* 2 MG/ML 1 ML VIAL IV PUSH PRN (22:45)
[2018-01-31] MEDS: KCL 20 MEQ/100 ML IVPREMIX* 20 MEQ/100 ML BAG IV SCH ×2 (00:06→02:05)
[2018-01-31 05:53] LABS: EGFR Non-African American 84.9 (>60)
[2018-01-31] MEDS ORDERED: KCL 20 MEQ/100 ML IVPREMIX* 20 MEQ/100 ML BAG IV ONE (06:31)
[2018-01-31] MEDS: NS 0.9% 1000 ML* 1,000 ML IV SCH (07:04)
[2018-01-31] MEDS ORDERED: NS 0.9% 1000 ML* 1,000 ML IV SCH (09:00)
[2018-01-31] MEDS: Enoxaparin(*) 30 MG/0.3 ML SYR SUBCUT SCH (09:13)
--- NOTE | 2018-01-31 15:41 | PN ---
NEUROLOGY FOLLOWUP NOTE: DATE OF FOLLOWUP: 01/31/18 LOCATION: She is in ICU bed 3. HOSPITALIST: Artie Dunbar MD. CHIEF COMPLAINT: Possible seizure. INTERVAL HISTORY: Since yesterday, Rafael is doing better. She is sleepy, but answers questions appr opriately. She knows she is in [place]. She grew up in [place] [facility] [place]. She lives at [facility]. S he asked for 6 blankets and says she is always cold. She denies headache. MEDICATIONS: Reviewed and she received fosphenytoin 800 mg yesterday, but no maintenance dose. She is on lorazepam as needed, but has not received any, enoxaparin 30 mg subcu q.24 hours. PHYSICAL EXAM: On exam, she is a thin and sleepy. She is well hydrated. Temperature 97.3, blood pre ssure 115/67, heart rate in the 80s and regular, respiratory rate is 24 and oxygen saturation is 94% with supplemental oxygen by nasal cannula. Neurologically, she is sleepy, but wakes to voice and gentle shaking. She is oriented to person and place. She does not recall coming to the hospital. She is contracted on the left side. She moves h er eyes appropriately. Speech is mildly dysarthric, but intelligible. DIAGNOSTIC STUDIES/LAB DATA: Laboratory data from this morning notable for chemistry profile with a potassium of 3.4, which is up from 3.2 yesterday, glucose 137, otherwise a normal chemistry profile. IMPRESSION AND PLAN: Impression is that of a seizure, probably from her old hemorrhage. I would lik e to get a new MRI scan this coming Friday. I will switch her from fosphenytoin to valproic acid, wh ich think it will be better tolerated as an outpatient. I will continue to follow her with you. [id number]/[facility] #: [id number]
[2018-01-31] MEDS ORDERED: amLODIPine TAB* 5 MG PO ONE (17:04)
[2018-01-31] MEDS ORDERED: hydrALAZINE IV* 20 MG/ML VIAL IV SLOW PU PRN (17:05)
--- NOTE | 2018-01-31 17:07 | PN ---
Subjective Date of Service: 01/31/18 Interval History: Pt seen and examined. Meds and labs reviewed. ROS: Denied FISHER/dizziness, F/C, N/V, CP, SOB, increased cough, sputum production , abd pain, diarrhea, constipation, dysuria, myalgias, arthralgias, throat pain , and new skin lesions. The rest of the 14 point ROS are unremarkable. PHYSICAL EXAM: GEN APPEARANCE: Awake, not in acute distress HEENT: NC/AT, PERRLA, moist oral mucosa, (-) throat erythema NECK: Soft, supple, (-) cervical LAD, (-)JVD HEART: S1S2 WNL, RRR, No MRG CHEST: CTA, BL, GAE, No W/R/R ABD: Soft, ND/NT, NABS 4x Q EXT: No C/C/E SKIN: Warm to touch PSYCH: No active psychosis, hallucinations, depression, SI/HI Objective Active Medications: Enoxaparin Sodium (Lovenox(*)) 30 mg SUBCUT Q24H SISI Last Admin: 01/31/18 09:13 Dose: 30 mg Sodium Chloride (Ns 0.9% 1000 Ml*) 1,000 mls @ 75 mls/hr IV PER RATE SISI Stop: 01/31/18 22:19 Last Admin: 01/31/18 09:13 Dose: 75 mls/hr Valproic Acid 500 mg/ Sodium (Chloride) 105 mls @ 210 mls/hr IVPB BID SISI Lorazepam (Ativan Inj*) 0.5 mg IV PUSH Q4H PRN PRN Reason: AGITATION Last Admin: 01/30/18 22:45 Dose: 0.5 mg Vital Signs - 8 hr 01/31/18 01/31/18 01/31/18 09:15 09:31 10:00 Temperature Pulse Rate 75 74 Respiratory 24 24 15 Rate Blood Pressure 122/77 (mmHg) O2 Sat by Pulse 98 98 Oximetry 01/31/18 01/31/18 01/31/18 10:01 10:13 10:31 Temperature Pulse Rate 69 Respiratory 18 20 20 Rate Blood Pressure 133/62 122/76 (mmHg) O2 Sat by Pulse 98 Oximetry 01/31/18 01/31/18 01/31/18 11:00 11:01 11:03 Temperature Pulse Rate 69 69 Respiratory 18 18 18 Rate Blood Pressure 109/56 (mmHg) O2 Sat by Pulse 95 95 Oximetry 01/31/18 01/31/18 01/31/18 11:06 11:30 12:00 Temperature 99.1 F Pulse Rate 68 65 Respiratory 17 20 Rate Blood Pressure 110/50 119/59 (mmHg) O2 Sat by Pulse 92 96 Oximetry 01/31/18 01/31/18 01/31/18 12:01 12:02 12:30 Temperature Pulse Rate 67 77 Respiratory 19 20 18 Rate Blood Pressure 121/59 (mmHg) O2 Sat by Pulse 96 95 Oximetry 01/31/18 01/31/18 01/31/18 13:00 13:01 13:30 Temperature Pulse Rate 70 76 72 Respiratory 25 26 18 Rate Blood Pressure 144/63 137/65 (mmHg) O2 Sat by Pulse 95 97 97 Oximetry 01/31/18 01/31/18 01/31/18 13:35 14:00 14:01 Temperature Pulse Rate 72 70 Respiratory 16 17 18 Rate Blood Pressure 141/63 (mmHg) O2 Sat by Pulse 96 96 Oximetry 01/31/18 01/31/18 01/31/18 14:13 14:30 15:00 Temperature Pulse Rate 70 Respiratory 17 23 18 Rate Blood Pressure 117/56 142/86 (mmHg) O2 Sat by Pulse 95 Oximetry 01/31/18 01/31/18 01/31/18 15:01 15:27 15:30 Temperature 99 F Pulse Rate 74 79 Respiratory 13 14 Rate Blood Pressure 146/87 (mmHg) O2 Sat by Pulse 98 98 Oximetry Oxygen Devices in Use Now: None Result Diagrams: 01/30/18 13:27 01/31/18 05:28 Microbiology and Other Data: Microbiology 01/30/18 18:00 Urine Culture - Preliminary Urine Escherichia Coli 01/30/18 18:27 Nasal Screen MRSA (PCR) - Final Nasal Mrsa Not Detected Assess/Plan/Problems-Billing Assessment: - Patient Problems (1) Altered mental status Current Visit: No Status: Chronic Priority: High Code(s): R41.82 - ALTERED MENTAL STATUS, UNSPECIFIED SNOMED Code(s): 965933728 Comment: -Waxing and waning eye deviation reported as well as slurring of speech -Impression by neurology is due to seizures probably due to old hemorrhage -MRI pending on Friday -Switched from Fosphophenytoin to Valproic acid (2) HTN (hypertension) Current Visit: Yes Status: Acute Code(s): I10 - ESSENTIAL (PRIMARY) HYPERTENSION SNOMED Code(s): 17778744 Comment: -D/C Nicardipine gtt -Placed on Norvasc -Will place on PRN Hydralazine (3) Urinary retention Current Visit: Yes Status: Acute Code(s): R33.9 - RETENTION OF URINE, UNSPECIFIED SNOMED Code(s): 775169010 Comment: -Placed on Medina on admission -U/A (-) for UTI (4) DVT prophylaxis Current Visit: Yes Status: Acute Code(s): [id number] - SNOMED Code(s): 102294869 Comment: -Decrease Lovenox to 30 mg given advanced age Status and Disposition: -Transfer to
[2018-01-31] MEDS ORDERED: Valproic Acid IV(*) 100 MG/ML 5 ML VIAL (500 MG) IVPB SCH (21:00)
[2018-01-31] MEDS: Valproic Acid IV(*) 500 MG in NS 0.9% 100 ML* 100 ML IVPB SCH (21:05)
--- NOTE | 2018-01-31 22:37 | EEG ---
ELECTROENCEPHALOGRAPHY: DATE OF STUDY: 01/30/18 REFERRING PROVIDER: Danae Whitman NP. LOCATION: She is in the intensive care unit. CLINICAL PROBLEM: History of right hemispheric intracranial hemorrhage, recent unresponsiveness and posturing, rule out seizures. MEDICATIONS: Include fosphenytoin started during the recording, lorazepam, labetalol, Cardene. REPORT: This 16-channel EEG is remarkable for movement artifact through large portions of the tracing. Quiet portions reveal diffuse low voltage fast activity. There is a posterior alpha rhythm in the right occipital derivations at about 8 to 9 cycles per second which is of low abundance. There is a very low abundance of alpha rhythm in the left occipital denervation. Fosphenytoin is started about half way through the recording without change in background rhythms. The patient vomits at one point again without change in background rhythms. The patient develops rigidity of the left and sometimes bilateral sides according to the orthodontic technician again without change in background rhythms. CLINICAL IMPRESSION: Abnormal EEG due to generalized disorganization of background rhythms, more from the left hemisphere than the right; however, there are no focal or epileptiform discharges during this recording. [id number]/[facility] #: [id number] [facility]
[2018-02-01 05:59] LABS: Hematocrit 35 % (35-47); Hemoglobin 11.4 g/dl (12.0-16.0); Mean Corpuscular HGB Conc 33 g/dl (31-36); Mean Corpuscular Hemoglobin 28 pg (27-31); Mean Corpuscular Volume 86 fL (80-97); Mean Platelet Volume 8.7 um3 (7.4-10.4); Platelet Count 377 10^3/ul (150-450); Red Blood Count 4.05 10^6/ul (4.00-5.40); Red Cell Distribution Width 15 % (10.5-15); White Blood Count 11.3 10^3/ul (3.5-10.8)
[2018-02-01 06:04] LABS: INR 0.99 (0.77-1.02)
[2018-02-01 06:16] LABS: EGFR Non-African American 94.8 (>60)
[2018-02-01] MEDS: Valproic Acid IV(*) 500 MG in NS 0.9% 100 ML* 100 ML IVPB SCH ×2 (09:19→20:47)
[2018-02-01] MEDS: Enoxaparin(*) 30 MG/0.3 ML SYR SUBCUT SCH (09:19)
[2018-02-01] MEDS ORDERED: Magnesium Sulfate IV* 3 GM in NS 0.9% 100 ML* 100 ML IVPB ONE (10:00)
[2018-02-01] MEDS ORDERED: Potassium Phosphate IV* 15 MMOLE in NS 0.9% 250 ML* 250 ML IVPB ONE (10:00)
--- NOTE | 2018-02-01 14:30 | PN ---
Subjective Date of Service: 02/01/18 Interval History: Pt seen and examined. Meds and labs reviewed. CC: N/A ROS: Denied FISHER/dizziness, F/C, N/V, CP, SOB, increased cough, sputum production , abd pain, diarrhea, constipation, dysuria, myalgias, arthralgias, throat pain , and new skin lesions. The rest of the 14 point ROS are unremarkable. PHYSICAL EXAM: GEN APPEARANCE: Awake, not in acute distress, not oriented to place and time HEENT: NC/AT, PERRLA, moist oral mucosa, (-) throat erythema NECK: Soft, supple, (-) cervical LAD, (-)JVD HEART: S1S2 WNL, RRR, No MRG CHEST: CTA, BL, GAE, No W/R/R ABD: Soft, ND/NT, NABS 4x Q EXT: No C/C/E SKIN: Warm to touch PSYCH: No active psychosis, hallucinations, depression, SI/HI Objective Active Medications: Enoxaparin Sodium (Lovenox(*)) 30 mg SUBCUT Q24H SISI Last Admin: 02/01/18 09:19 Dose: 30 mg Valproic Acid 500 mg/ Sodium (Chloride) 105 mls @ 210 mls/hr IVPB BID SISI Last Admin: 02/01/18 09:19 Dose: 210 mls/hr Potassium Phosphate 15 mmole/ (Sodium Chloride) 255 mls @ 42 mls/hr IVPB ONCE ONE Stop: 02/01/18 16:04 Last Admin: 02/01/18 10:26 Dose: 42 mls/hr Lorazepam (Ativan Inj*) 0.5 mg IV PUSH Q4H PRN PRN Reason: AGITATION Last Admin: 01/30/18 22:45 Dose: 0.5 mg Vital Signs - 8 hr 02/01/18 02/01/18 02/01/18 07:19 08:00 11:20 Temperature 98.3 F 98.8 F Pulse Rate 77 85 Respiratory 16 16 16 Rate Blood Pressure 120/50 135/62 (mmHg) O2 Sat by Pulse 99 97 Oximetry Oxygen Devices in Use Now: None Result Diagrams: 02/01/18 05:35 02/01/18 05:35 Microbiology and Other Data: Microbiology 01/30/18 18:00 Urine Culture - Preliminary Urine Escherichia Coli 01/30/18 18:27 Nasal Screen MRSA (PCR) - Final Nasal Mrsa Not Detected Assess/Plan/Problems-Billing Assessment: - Patient Problems (1) Altered mental status Current Visit: No Status: Chronic Priority: High Code(s): R41.82 - ALTERED MENTAL STATUS, UNSPECIFIED SNOMED Code(s): 863285948 Comment: -Waxing and waning eye deviation reported as well as slurring of speech -Impression by neurology is due to seizures probably due to old hemorrhage -MRI pending for tomorrow -Continue Valproic acid (2) HTN (hypertension) Current Visit: Yes Status: Acute Code(s): I10 - ESSENTIAL (PRIMARY) HYPERTENSION SNOMED Code(s): 78631605 Comment: -Well-controlled -Continue Norvasc -D/C PRN Hydralazine given it has not been given (3) Urinary retention Current Visit: Yes Status: Acute Code(s): R33.9 - RETENTION OF URINE, UNSPECIFIED SNOMED Code(s): 468851636 Comment: -Placed on Medina on admission -U/A (-) for UTI (4) DVT prophylaxis Current Visit: Yes Status: Acute Code(s): [id number] - SNOMED Code(s): 059585059 Comment: -Continue Lovenox 30 mg Status and Disposition: -Appreciate initial PT assessment and will await for any recommendations post-D/ C
[2018-02-02 05:41] LABS: ABS Basophils 0.1 10^3/ul (0-0.2); ABS Eosinophils 0 10^3/ul (0-0.6); ABS Lymphocytes 1.5 10^3/ul (1.0-4.8); ABS Monocytes 0.9 10^3/ul (0-0.8); ABS Neutrophils 7.6 10^3/ul (1.5-7.7); ABS Nucleated RBC 0 10^3/ul; Eosinophil % 0.5 % (0-6); Hematocrit 35 % (35-47); Hemoglobin 11.7 g/dl (12.0-16.0); Lymphocyte % 14.4 % (25-47); Mean Corpuscular HGB Conc 33 g/dl (31-36); Mean Corpuscular Hemoglobin 29 pg (27-31); Mean Corpuscular Volume 86 fL (80-97); Mean Platelet Volume 8.9 um3 (7.4-10.4); Nucleated Red Blood Cells % 0.1; Platelet Count 379 10^3/ul (150-450); Red Blood Count 4.08 10^6/ul (4.00-5.40); Red Cell Distribution Width 15 % (10.5-15); White Blood Count 10.1 10^3/ul (3.5-10.8)
[2018-02-02 06:04] LABS: EGFR Non-African American 79.3 (>60)
[2018-02-02] MEDS: Valproic Acid IV(*) 500 MG in NS 0.9% 100 ML* 100 ML IVPB SCH (09:58)
[2018-02-02] MEDS: Enoxaparin(*) 30 MG/0.3 ML SYR SUBCUT SCH (09:59)
[2018-02-02] MEDS: LORazepam INJ* 2 MG/ML 1 ML VIAL IV PUSH PRN (11:37)
[2018-02-02] MEDS ORDERED: LORazepam INJ* 2 MG/ML 1 ML VIAL IV PUSH STA (13:07)
[2018-02-02] MEDS: Acetaminophen TAB* 325 MG PO PRN (13:30)
--- NOTE | 2018-02-02 15:57 | RAD ---
HISTORY: seizure COMPARISONS: CT dated January 30, 2018, MRI dated October 06, 2017 TECHNIQUE: The following sequences were obtained of the head: Sagittal T1-weighted images, axial T2-weighted images, axial FLAIR images, axial susceptibility weighted images, axial T1-weighted images. Additionally, axial diffusion-weighted images were obtained with calculated apparent diffusion coefficients. FINDINGS: The study is limited by patient motion artifact. HEMORRHAGE/INFARCT: There is no hemorrhage or acute infarct. MASSES/SHIFT: There is no mass or shift. EXTRA-AXIAL SPACES/MENINGES: There are no extra-axial fluid collections. SULCI AND VENTRICLES: There is diffuse and proportional enlargement of the sulci and ventricles. CEREBRUM: There is elevated T2/FLAIR signal in the periventricular and subcortical white matter. There is hemosiderin deposition along the right basal ganglia and posterior mesial temporal lobe suggestive of remote hemorrhage. This is similar to the previous examination. BRAINSTEM: There are no focal parenchymal abnormalities. CEREBELLUM: There are no focal parenchymal abnormalities. The cerebellar tonsils are normal in size and position. SELLA: The sella is normal. PINEAL: The pineal region is clear. CP ANGLE/TEMPORAL BONES: The labyrinthine structures are grossly normal. VESSELS: Normal flow-voids are noted within the visualized vertebral vasculature. DIFFUSION ABNORMALITIES: There are no diffusion abnormalities. PARANASAL SINUSES/MASTOIDS: The paranasal sinuses are clear. ORBITS: The orbits are unremarkable. BONES AND SOFT TISSUE: No bone or soft tissue abnormalities are noted. OTHER: None IMPRESSION: 1. LIMITED STUDY. 2. DIFFUSE INVOLUTIONAL CHANGE WITH CHRONIC SMALL VESSEL ISCHEMIC CHANGES. 3. EVIDENCE OF REMOTE HEMORRHAGE OF THE RIGHT BASAL GANGLIA AND MEDIAL TEMPORAL LOBE, STABLE FROM THE PREVIOUS EXAMINATION. 4. NO RESTRICTED DIFFUSION TO SUGGEST ACUTE INFARCT.
--- NOTE | 2018-02-02 16:30 | PN ---
Subjective Date of Service: 02/02/18 Interval History: Pt seen and examined. Meds and labs reviewed. CC: NA ROS: Denied FISHER/dizziness, F/C, N/V, CP, SOB, increased cough, sputum production , abd pain, diarrhea, constipation, dysuria, myalgias, arthralgias, throat pain , and new skin lesions. The rest of the 14 point ROS are unremarkable. PHYSICAL EXAM: GEN APPEARANCE: Awake, not in acute distress, not oriented to place and time HEENT: NC/AT, PERRLA, moist oral mucosa, (-) throat erythema NECK: Soft, supple, (-) cervical LAD, (-)JVD HEART: S1S2 WNL, RRR, No MRG CHEST: CTA, BL, GAE, No W/R/R ABD: Soft, ND/NT, NABS 4x Q EXT: No C/C/E SKIN: Warm to touch PSYCH: No active psychosis, hallucinations, depression, SI/HI Objective Active Medications: Acetaminophen (Tylenol Tab*) 650 mg PO Q6H PRN PRN Reason: Pain/Fever Last Admin: 02/02/18 13:30 Dose: 650 mg Divalproex Sodium (Depakote Sprinkle Cap*) 125 mg PO TID [facility] Lorazepam (Ativan Inj*) 0.5 mg IV PUSH Q4H PRN PRN Reason: AGITATION Last Admin: 02/02/18 11:37 Dose: 0.5 mg Losartan Potassium (Cozaar Tab*) 50 mg PO DAILY [facility] Trazodone HCl (Desyrel Tab*) 25 mg PO BEDTIME [facility] Vital Signs - 8 hr 02/02/18 02/02/18 02/02/18 11:18 11:37 13:15 Temperature 97.7 F Pulse Rate 96 Respiratory 20 20 21 Rate Blood Pressure 162/66 (mmHg) O2 Sat by Pulse 100 Oximetry 02/02/18 02/02/18 14:29 15:57 Temperature Pulse Rate 80 Respiratory 23 Rate Blood Pressure 141/66 (mmHg) O2 Sat by Pulse 98 Oximetry Oxygen Devices in Use Now: Nasal Cannula Result Diagrams: 02/02/18 05:32 02/02/18 05:32 Microbiology and Other Data: Microbiology 01/30/18 18:00 Urine Culture - Preliminary Urine Escherichia Coli 01/30/18 18:27 Nasal Screen MRSA (PCR) - Final Nasal Mrsa Not Detected Assess/Plan/Problems-Billing Assessment: - Patient Problems (1) Altered mental status Current Visit: No Status: Chronic Priority: High Code(s): R41.82 - ALTERED MENTAL STATUS, UNSPECIFIED SNOMED Code(s): 540039648 Comment: -Waxing and waning eye deviation reported as well as slurring of speechseems to have resolved and have not been observed for 3 days -Impression by neurology is due to seizures probably due to old hemorrhage -MRI shows NAD but 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 Will hold DVT prophylaxis for now and continue SCDs -Continue Valproic acid -Place pt on Trazodone for behavioral issues and nursing report of possibly not being able to sleep well at night (2) HTN (hypertension) Current Visit: Yes Status: Acute Code(s): I10 - ESSENTIAL (PRIMARY) HYPERTENSION SNOMED Code(s): 63496890 Comment: -Will place pt back on Losartan -Consider adding home Atenolol if pt tolerates (3) Urinary retention Current Visit: Yes Status: Acute Code(s): R33.9 - RETENTION OF URINE, UNSPECIFIED SNOMED Code(s): 103271749 Comment: -Placed on [place] on admission -U/A (-) for UTI (4) DVT prophylaxis Current Visit: Yes Status: Acute Code(s): RTO2879 - SNOMED Code(s): 775816370 Comment: -D/Cd Lovenox given report discussed -Continue SCDs Status and Disposition: -Appreciate initial PT assessment and will await for any recommendations post-D/ C
[2018-02-02] MEDS: Losartan TAB* 25 MG PO SCH (17:05)
[2018-02-02] MEDS ORDERED: Haloperidol INJ IV/IM* 5 MG/ML AMP ONE (18:07)
[2018-02-02] MEDS: Haloperidol INJ IV/IM* 5 MG/ML AMP IV SLOW PU PRN (18:13)
[2018-02-02] MEDS: traZODone TAB* 50 MG TAB PO SCH (20:52)
[2018-02-02] MEDS: Divalproex Sprinkle CAP* 125 MG PO SCH (20:57)
--- NOTE | 2018-02-03 04:58 | EEG ---
ELECTROENCEPHALOGRAPHY: DATE OF STUDY: 01/30/18 LOCATION: She was an inpatient in the emergency room. REFERRING PHYSICIAN: Danae Whitman NP CLINICAL PROBLEM: Diminished responsiveness, stiffening and left eye deviation in a patient with a history of a right intracranial hemorrhage. MEDICATIONS: Include: 1. Cardene. 2. Fosphenytoin. 3. Quetiapine. 4. Lorazepam. 5. Labetalol. REPORT: This 16-channel EEG is contaminated by movement artifact through significant portions of the tracing. Quieter portions reveal an alpha rhythm in the posterior derivations mainly on the right side at about 8 cycles per second. There is essentially a very suppressed low voltage pattern with intermingled low voltage delta activity seen from the left hemisphere. The patient vomits during the recording and is also incontinent. Fosphenytoin is started during the recording. The patient was described as only moving the right arm with nonpurposeful activity. Movement and muscle artifact subside somewhat after fosphenytoin was started, but does not completely denise. There are no clear epileptiform discharges during this recording. CLINICAL IMPRESSION: Abnormal EEG due to asymmetrical and abnormal rhythms bilaterally with more suppressed activity from the left hemisphere during this recording. There are no focal or epileptiform discharges. This tracing is compatible with diffuse cerebral dysfunction possibly affecting the left hemisphere more than the right, but bilaterally. [id number]/[facility] #: [id number] [facility] HOSPITALJane
[2018-02-03 05:47] LABS: Hematocrit 36 % (35-47); Hemoglobin 12.2 g/dl (12.0-16.0); Mean Corpuscular HGB Conc 34 g/dl (31-36); Mean Corpuscular Hemoglobin 29 pg (27-31); Mean Corpuscular Volume 86 fL (80-97); Mean Platelet Volume 8.8 um3 (7.4-10.4); Platelet Count 354 10^3/ul (150-450); Red Blood Count 4.19 10^6/ul (4.00-5.40); Red Cell Distribution Width 15 % (10.5-15)
[2018-02-03 06:07] LABS: EGFR Non-African American 94.8 (>60)
[2018-02-03] MEDS: Acetaminophen TAB* 325 MG PO PRN ×2 (08:29→19:20)
[2018-02-03] MEDS: Losartan TAB* 25 MG PO SCH (08:29)
[2018-02-03] MEDS: Divalproex Sprinkle CAP* 125 MG PO SCH ×3 (08:30→20:37)
--- NOTE | 2018-02-03 12:28 | PN ---
Subjective Date of Service: 02/03/18 Interval History: Patient seen, asleep. whe was awaken and followed simple command. non conservative in a conversation however. Objective Active Medications: Acetaminophen (Tylenol Tab*) 650 mg PO Q6H PRN PRN Reason: Pain/Fever Last Admin: 02/03/18 08:29 Dose: 650 mg Divalproex Sodium (Depakote Sprinkle Cap*) 125 mg PO TID [facility] Last Admin: 02/03/18 08:30 Dose: 125 mg Haloperidol Lactate (Haldol Inj Iv/Im*) 2.5 mg IV SLOW PU Q6H PRN PRN Reason: AGITATION Last Admin: 02/02/18 18:13 Dose: 2.5 mg Ceftriaxone Sodium 1 gm/ (Sodium Chloride) 50 mls @ 200 mls/hr IVPB Q24H [facility] Lorazepam (Ativan Inj*) 0.5 mg IV PUSH Q4H PRN PRN Reason: AGITATION Last Admin: 02/02/18 11:37 Dose: 0.5 mg Losartan Potassium (Cozaar Tab*) 50 mg PO DAILY [facility] Last Admin: 02/03/18 08:29 Dose: 50 mg Trazodone HCl (Desyrel Tab*) 25 mg PO BEDTIME [facility] Last Admin: 02/02/18 20:52 Dose: 25 mg Vital Signs - 8 hr 02/03/18 02/03/18 07:45 08:20 Temperature 97.9 F Pulse Rate 81 Respiratory 20 20 Rate Blood Pressure 147/72 (mmHg) O2 Sat by Pulse 98 Oximetry Oxygen Devices in Use Now: Nasal Cannula Result Diagrams: 02/03/18 05:18 02/03/18 05:18 Microbiology and Other Data: Microbiology 01/30/18 18:00 Urine Culture - Preliminary Urine Escherichia Coli 01/30/18 18:27 Nasal Screen MRSA (PCR) - Final Nasal Mrsa Not Detected Assess/Plan/Problems-Billing Assessment: 87 year old female admitted for altered mental status thought to be due to seizure from an 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 She does have left side neglect. - not conversing in a full conversations. She does follows simple command. 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 Will keep lovenox on hold for DVT prophylaxis for now and continue SCDs -Continue Valproic acid (3) Hypertensive emergency, no CHF Current Visit: No Status: Acute Code(s): I16.1 - HYPERTENSIVE EMERGENCY SNOMED Code(s): 545735918057251 Comment: - Patient was noted to be hypertensive at 234/106 on presentation in the ER - currently on losartan 50 mg daily, I will atenolol 25 mg at bedtime (4) HTN (hypertension) Current Visit: Yes Status: Acute Code(s): I10 - ESSENTIAL (PRIMARY) HYPERTENSION SNOMED Code(s): 74511455 Comment: - Currently on Losartan 50 mg daily - I will add Atenolol 25 mg daily as per BP remains mildly elevated (5) Urinary tract infection Current Visit: Yes Status: Acute Comment: - E-Coli; Will initiate ceftriaxone 1 gm daily as I do not see that it has been addressed. (6) CAD (coronary artery disease) Current Visit: No Status: Chronic Priority: Medium Code(s): I25.10 - ATHSCL HEART DISEASE OF [place] CORONARY ARTERY W/O ANG PCTRS SNOMED Code(s): 98011603 Comment: - resume atenolol 25 mg, not candidate for aspirin for now given her basal ganglia bleed (7) CVA (cerebral vascular accident) Current Visit: No Status: Suspected Priority: High Code(s): I63.9 - CEREBRAL INFARCTION, UNSPECIFIED SNOMED Code(s): 772387589 Comment: - Seen for first time by me today. She does have left side neglect. - not conversing in a full conversations. She does follows simple command. 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
[2018-02-03] MEDS: cefTRIAXone(*) 1 GM in NS 0.9% 50 ML* 50 ML IVPB SCH (13:38)
[2018-02-03] MEDS ORDERED: NS 0.9% 1000 ML* 1,000 ML IV SCH (15:00)
[2018-02-03] MEDS ORDERED: Diltiazem IV* 5 MG/ML 5 ML VIAL (for loading dose/IV Push) (25 MG) ONE (17:08)
[2018-02-03] MEDS ORDERED: NS 0.9% 250 ML* 250 ML IV ONE (17:20)
[2018-02-03] MEDS ORDERED: Diltiazem IV* 5 MG/ML 5 ML VIAL (for loading dose/IV Push) (25 MG) IV SLOW PU ONE (17:21)
[2018-02-03] MEDS: LORazepam INJ* 2 MG/ML 1 ML VIAL IV PUSH PRN (17:23)
[2018-02-03] MEDS: Senna TAB PO SCH ×2 (19:20→19:48)
[2018-02-03] MEDS: traZODone TAB* 50 MG TAB PO SCH (20:35)
[2018-02-03] MEDS: Atenolol TAB* 25 MG PO SCH (20:36)
--- NOTE | 2018-02-04 07:49 | RAD ---
INDICATION: Rales. COMPARISON: Comparison is made with prior chest x-ray study from January 30, 2018. TECHNIQUE: A portable view of the chest was obtained. FINDINGS: Cardiac and mediastinal contours appear to be within normal limits. The lungs are underinflated and grossly clear. No pleural effusion is seen. IMPRESSION: NO EVIDENCE FOR ACUTE DISEASE. R1
[2018-02-04] MEDS: Losartan TAB* 25 MG PO SCH (08:04)
[2018-02-04] MEDS: Sertraline* 25 MG TAB PO SCH (08:08)
[2018-02-04] MEDS: Divalproex Sprinkle CAP* 125 MG PO SCH ×3 (08:09→20:33)
[2018-02-04] MEDS: Senna TAB PO SCH (08:09)
[2018-02-04] MEDS: cefTRIAXone(*) 1 GM in NS 0.9% 50 ML* 50 ML IVPB SCH (12:38)
--- NOTE | 2018-02-04 17:27 | PN ---
Subjective Date of Service: 02/04/18 Interval History: Patient seen this afternoon, very alert today. She is actually up in bed self feeding. taking lunch. no complains. no events overnight. she is sinus rhythm on tele. vitals noted slightly BP elevated in the 150's but pulse in mid 70's on average. Objective Active Medications: Acetaminophen (Tylenol Tab*) 650 mg PO Q6H PRN PRN Reason: Pain/Fever Last Admin: 02/03/18 19:20 Dose: 650 mg Atenolol (Tenormin Tab*) 25 mg PO BEDTIME [facility] Last Admin: 02/03/18 20:36 Dose: 25 mg Divalproex Sodium (Depakote Sprinkle Cap*) 125 mg PO TID [facility] Last Admin: 02/04/18 13:19 Dose: 125 mg Haloperidol Lactate (Haldol Inj Iv/Im*) 2.5 mg IV SLOW PU Q6H PRN PRN Reason: AGITATION Last Admin: 02/02/18 18:13 Dose: 2.5 mg Ceftriaxone Sodium 1 gm/ (Sodium Chloride) 50 mls @ 200 mls/hr IVPB Q24HR@1300 [facility] Last Admin: 02/04/18 12:38 Dose: 200 mls/hr Lorazepam (Ativan Inj*) 0.5 mg IV PUSH Q4H PRN PRN Reason: AGITATION Last Admin: 02/03/18 17:23 Dose: 0.5 mg Losartan Potassium (Cozaar Tab*) 50 mg PO DAILY [facility] Last Admin: 02/04/18 08:04 Dose: 50 mg Senna (Senokot Tab*) 2 tab PO DAILY [facility] Last Admin: 02/04/18 08:09 Dose: Not Given Sertraline HCl (Zoloft*) 25 mg PO DAILY [facility] Last Admin: 02/04/18 08:08 Dose: 25 mg Trazodone HCl (Desyrel Tab*) 25 mg PO BEDTIME [facility] Last Admin: 02/03/18 20:35 Dose: 25 mg Vital Signs - 8 hr 02/04/18 02/04/18 12:44 15:41 Temperature 97.3 F 97.6 F Pulse Rate 73 73 Respiratory 16 16 Rate Blood Pressure 148/67 153/70 (mmHg) O2 Sat by Pulse 98 97 Oximetry Oxygen Devices in Use Now: None Appearance: awake, verbal. Eyes: PERRLA Ears/Nose/Mouth/Throat: NL Teeth, Lips, Gums Neck: NL Appearance and Movements; NL JVP, Trachea Midline Respiratory: Symmetrical Chest Expansion and Respiratory Effort, Clear to Auscultation Cardiovascular: NL Sounds; No Murmurs; No JVD, RRR Abdominal: NL Sounds; No Tenderness; No Distention Extremities: No Edema, No Clubbing, Cyanosis Neurological: - - left sided weakness, contracted LUE. mild dysarthria - Nutrition: Malnutrition Diagnosis/Plan Malnutrition Assessment by Registered Dietitian: Malnutrition Assessment Clinical Characteristics Acute,Severe Malnutrition Assessment: Severe muscle wasting in temples and arms Criteria Severe orbital fat pad wasting Intake <50% of needs for at least 5 days BMI 15 Malnutrition Assessment: Will trial Ensure Enlive daily @ B, L, D (350 Interventions kcals, 20 grams protein per serving) Malnutrition Assessment: Goals 1) Adequate po intake to replete lean body mass and hydration status w/o undesired wt loss 2) Pt will accept nutritional supplement for optimized kcal-prot intake Result Diagrams: 02/03/18 05:18 02/03/18 05:18 Microbiology and Other Data: Microbiology 01/30/18 18:00 Urine Culture - Preliminary Urine Escherichia Coli 01/30/18 18:27 Nasal Screen MRSA (PCR) - Final Nasal Mrsa Not Detected Assess/Plan/Problems-Billing - Patient Problems (1) Altered mental status Current Visit: No Status: Chronic Priority: High Code(s): R41.82 - ALTERED MENTAL STATUS, UNSPECIFIED SNOMED Code(s): 496482942 Comment: - she is significantly better, no left side neglect. taking po independantly and conversing. 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 Will keep lovenox on hold for DVT prophylaxis for now and continue SCDs -Continue Valproic acid (3) SVT (supraventricular tachycardia) Current Visit: Yes Status: Resolved Code(s): I47.1 - SUPRAVENTRICULAR TACHYCARDIA SNOMED Code(s): 0869069 Comment: - s/p SVT yesterday around 6 pm resolved with one dose of cardizem 10 mg push - Now sinus on tele. Atenolol did control her rate and blood pressure - Will d/c tele and continue atenolol potential discharge in am for NH (4) Hypertensive emergency, no CHF Current Visit: No Status: Acute Code(s): I16.1 - HYPERTENSIVE EMERGENCY SNOMED Code(s): 214748586216645 Comment: - Patient was noted to be hypertensive at 234/106 on presentation in the ER - currently on losartan 50 mg daily, I did atenolol 25 mg at bedtime and seems to improved BP and pulse (5) HTN (hypertension) Current Visit: Yes Status: Acute Code(s): I10 - ESSENTIAL (PRIMARY) HYPERTENSION SNOMED Code(s): 95821580 Comment: - Patient was noted to be hypertensive at 234/106 on presentation in the ER - currently on losartan 50 mg daily, I did atenolol 25 mg at bedtime and seems to improved BP and pulse (6) Urinary tract infection Current Visit: Yes Status: Acute Comment: - E-Coli; Will initiate ceftriaxone 1 gm daily day # 2 as I do not see that it has been addressed. (7) CAD (coronary artery disease) Current Visit: No Status: Chronic Priority: Medium Code(s): I25.10 - ATHSCL HEART DISEASE OF [place] CORONARY ARTERY W/O ANG PCTRS SNOMED Code(s): 81342622 Comment: - resumed atenolol 25 mg, not candidate for aspirin for now given her basal ganglia bleed (8) CVA (cerebral vascular accident) Current Visit: No Status: Suspected Priority: High Code(s): I63.9 - CEREBRAL INFARCTION, UNSPECIFIED SNOMED Code(s): 868207683 Comment: - she is significantly better, no left side neglect. taking po independantly and conversing. 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
[2018-02-04] MEDS ORDERED: diPHENhydraMINE PO* 50 MG PO ONE (19:00)
[2018-02-04] MEDS ORDERED: diPHENhydraMINE PO* 25 MG PO PRN (19:00)
[2018-02-04] MEDS: Acetaminophen TAB* 325 MG PO PRN (19:23)
[2018-02-04] MEDS ORDERED: Polyethylene Glycol 3350* 17 GM PACKET PO PRN (19:43)
[2018-02-04] MEDS: Atenolol TAB* 25 MG PO SCH (20:32)
[2018-02-04] MEDS: Ciprofloxacin TAB* 250 MG PO SCH (20:33)
[2018-02-04] MEDS: traZODone TAB* 50 MG TAB PO SCH (20:33)
[2018-02-04] MEDS: Bisacodyl SUPP* 10 MG SUPP PR ONE ×2 (21:55→22:05)
[2018-02-05] MEDS ORDERED: Bisacodyl SUPP* 10 MG SUPP PR ONE (05:50)
[2018-02-05 06:29] LABS: ABS Basophils 0 10^3/ul (0-0.2); ABS Eosinophils 0.7 10^3/ul (0-0.6); ABS Lymphocytes 1.2 10^3/ul (1.0-4.8); ABS Monocytes 0.7 10^3/ul (0-0.8); ABS Neutrophils 3.5 10^3/ul (1.5-7.7); ABS Nucleated RBC 0 10^3/ul; Eosinophil % 10.9 % (0-6); Hematocrit 38 % (35-47); Hemoglobin 12.5 g/dl (12.0-16.0); Lymphocyte % 19.5 % (25-47); Mean Corpuscular HGB Conc 33 g/dl (31-36); Mean Corpuscular Hemoglobin 29 pg (27-31); Mean Corpuscular Volume 86 fL (80-97); Mean Platelet Volume 8.9 um3 (7.4-10.4); Nucleated Red Blood Cells % 0.1; Platelet Count 353 10^3/ul (150-450); Red Blood Count 4.35 10^6/ul (4.00-5.40); Red Cell Distribution Width 15 % (10.5-15); White Blood Count 6.1 10^3/ul (3.5-10.8)
[2018-02-05 06:56] LABS: EGFR Non-African American 100.6 (>60)
[2018-02-05] MEDS: Losartan TAB* 25 MG PO SCH (08:48)
[2018-02-05] MEDS: Divalproex Sprinkle CAP* 125 MG PO SCH ×3 (08:50→23:23)
[2018-02-05] MEDS: Sertraline* 25 MG TAB PO SCH (08:51)
[2018-02-05] MEDS: Senna TAB PO SCH (08:52)
[2018-02-05] MEDS ORDERED: Magnesium Oxide TAB* 400 MG PO ONE (14:02)
--- NOTE | 2018-02-05 14:08 | PN ---
Subjective Date of Service: 02/05/18 Interval History: seen in bed. no acute events. doing well. verbal. at baseline. taking po. awake, alert and conversing Past Medical History: Unchanged from Admission Objective Active Medications: Acetaminophen (Tylenol Tab*) 650 mg PO Q6H PRN PRN Reason: Pain/Fever Last Admin: 02/04/18 19:23 Dose: 650 mg Atenolol (Tenormin Tab*) 25 mg PO BEDTIME [facility] Last Admin: 02/04/18 20:32 Dose: 25 mg Ciprofloxacin (Cipro Tab*) 250 mg PO Q18H [facility] Last Admin: 02/04/18 20:33 Dose: 250 mg Diphenhydramine HCl (Benadryl Po*) 25 mg PO Q6H PRN PRN Reason: HIVES Divalproex Sodium (Depakote Sprinkle Cap*) 125 mg PO TID [facility] Last Admin: 02/05/18 08:50 Dose: 125 mg Haloperidol Lactate (Haldol Inj Iv/Im*) 2.5 mg IV SLOW PU Q6H PRN PRN Reason: AGITATION Last Admin: 02/02/18 18:13 Dose: 2.5 mg Lorazepam (Ativan Inj*) 0.5 mg IV PUSH Q4H PRN PRN Reason: AGITATION Last Admin: 02/03/18 17:23 Dose: 0.5 mg Losartan Potassium (Cozaar Tab*) 50 mg PO DAILY [facility] Last Admin: 02/05/18 08:48 Dose: 50 mg Magnesium Oxide (Magox 400 Tab*) 800 mg PO ONCE ONE Stop: 02/05/18 14:03 Polyethylene Glycol/Electrolytes (Miralax*) 17 gm PO DAILY PRN PRN Reason: CONSTIPATION Last Admin: 02/04/18 20:32 Dose: 17 gm Potassium Chloride (Klor-Con Liquid*) 40 meq PO DAILY [facility] Senna (Senokot Tab*) 2 tab PO DAILY [facility] Last Admin: 02/05/18 08:52 Dose: Not Given Sertraline HCl (Zoloft*) 25 mg PO DAILY [facility] Last Admin: 02/05/18 08:51 Dose: 25 mg Trazodone HCl (Desyrel Tab*) 25 mg PO BEDTIME [facility] Last Admin: 02/04/18 20:33 Dose: 25 mg Vital Signs - 8 hr 1002/05/18 02/05/18 07:23 08:00 09:15 Temperature 97.7 F 98.4 F Pulse Rate 81 84 Respiratory 16 18 20 Rate Blood Pressure 155/73 130/60 (mmHg) O2 Sat by Pulse 97 98 Oximetry 02/05/18 02/05/18 09:22 10:37 Temperature 98.4 F 97.9 F Pulse Rate 91 91 Respiratory 16 Rate Blood Pressure 133/62 (mmHg) O2 Sat by Pulse 98 96 Oximetry Oxygen Devices in Use Now: None Appearance: awake, alert. no acute distress Eyes: No Scleral Icterus Ears/Nose/Mouth/Throat: Clear Oropharnyx, Mucous Membranes Moist Neck: NL Appearance and Movements; NL JVP, Trachea Midline Respiratory: Symmetrical Chest Expansion and Respiratory Effort, Clear to Auscultation Cardiovascular: NL Sounds; No Murmurs; No JVD Abdominal: NL Sounds; No Tenderness; No Distention Extremities: - - left sided weakness, contracted LUE. mild dysarthria Neurological: - - alert awake oriented to place and person - Nutrition: Malnutrition Diagnosis/Plan Malnutrition Assessment by Registered Dietitian: Malnutrition Assessment Clinical Characteristics Acute,Severe Malnutrition Assessment: Severe muscle wasting in temples and arms Criteria Severe orbital fat pad wasting Intake <50% of needs for at least 5 days BMI 15 Malnutrition Assessment: Will trial Ensure Enlive daily @ B, L, D (350 Interventions kcals, 20 grams protein per serving) Malnutrition Assessment: Goals 1) Adequate po intake to replete lean body mass and hydration status w/o undesired wt loss 2) Pt will accept nutritional supplement for optimized kcal-prot intake Result Diagrams: 02/05/18 06:06 02/05/18 06:06 Microbiology and Other Data: Microbiology 01/30/18 18:00 Urine Culture - Preliminary Urine Escherichia Coli 01/30/18 18:27 Nasal Screen MRSA (PCR) - Final Nasal Mrsa Not Detected Assess/Plan/Problems-Billing - Patient Problems (1) Altered mental status Current Visit: No Status: Chronic Priority: High Code(s): R41.82 - ALTERED MENTAL STATUS, UNSPECIFIED SNOMED Code(s): 083487784 Comment: - she is significantly better, no left side neglect. taking po independantly and conversing. 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 Will keep lovenox on hold for DVT prophylaxis for now and continue SCDs -Continue Valproic acid (3) SVT (supraventricular tachycardia) Current Visit: Yes Status: Resolved Code(s): I47.1 - SUPRAVENTRICULAR TACHYCARDIA SNOMED Code(s): 9531804 Comment: - s/p SVT yesterday around 6 pm resolved with one dose of cardizem 10 mg push - Now sinus on tele. Atenolol did control her rate and blood pressure - Will d/c tele and continue atenolol potential discharge in am for NH (4) Hypertensive emergency, no CHF Current Visit: No Status: Acute Code(s): I16.1 - HYPERTENSIVE EMERGENCY SNOMED Code(s): 330162313028334 Comment: - Patient was noted to be hypertensive at 234/106 on presentation in the ER - currently on losartan 50 mg daily, I did atenolol 25 mg at bedtime and seems to improved BP and pulse (5) HTN (hypertension) Current Visit: Yes Status: Acute Code(s): I10 - ESSENTIAL (PRIMARY) HYPERTENSION SNOMED Code(s): 23385527 Comment: - Patient was noted to be hypertensive at 234/106 on presentation in the ER - currently on losartan 50 mg daily, I did atenolol 25 mg at bedtime and seems to improved BP and pulse (6) Urinary tract infection Current Visit: Yes Status: Acute Comment: - E-Coli; I did initiate ceftriaxone 1 gm daily day for 2 days but she develloped Hives diffusely over back and chest. It wasd discontinued. given benadryl and placed her on cipro 250 daily for renal dose. (7) CAD (coronary artery disease) Current Visit: No Status: Chronic Priority: Medium Code(s): I25.10 - ATHSCL HEART DISEASE OF [place] CORONARY ARTERY W/O ANG PCTRS SNOMED Code(s): 75136584 Comment: - resumed atenolol 25 mg, not candidate for aspirin for now given her basal ganglia bleed (8) CVA (cerebral vascular accident) Current Visit: No Status: Suspected Priority: High Code(s): I63.9 - CEREBRAL INFARCTION, UNSPECIFIED SNOMED Code(s): 945772521 Comment: - she is significantly better, no left side neglect. taking po independantly and conversing. 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
[2018-02-05] MEDS: Potassium Chloride LIQUID* 20 MEQ PACKET PO SCH (15:01)
--- NOTE | 2018-02-05 16:20 | DS ---
CC: Primary Care; Dr. Gutierrez/Dr. Jeremy Olmos, Neurology * DISCHARGE SUMMARY: DATE OF ADMISSION: 01/30/18 DATE OF DISCHARGE: 02/05/18 FINAL DISCHARGE DIAGNOSES: 1. 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 2. Basal ganglia bleed, stable. 3. Seizures, new onset. 4. Hypertensive emergency. 5. 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 6. Urinary tract infection. 7. History of coronary artery disease. 8. History of cerebrovascular accident. HOSPITAL COURSE: Ms. 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 On presentation , the patient was found to be profoundly hypertensive with a systolic blood pressure 213, diastolic 113. She did have left-sided neglect and at the time of the evaluation by the ER providers and admitting provider, the patient was described as nonverbal. CT scan in the emergency room was done, did not reveal any acute bleed or stigmata of subacute embolic infarct. She was seen and assessed by Neurology and it was felt that it was very suspicious presentation for possible seizures and perhaps a small hemorrhagic CVA. She was treated with Ativan and admitted to medicine service. Her hypertensive emergency was treated with labetalol push and nicardipine drip allowing permissive hypertension between 140 to 160s. The patient admitted to ICU and over the following week, the patient underwent an array of testing. Initially, brain CT on ER presentation was negative followed by CTA of the head was grossly unremarkable for acute pathology; however, an MRI on 02/02/18, although was limited, it did show evidence of remote hemorrhage in the right basal ganglia and in the medial temporal lobe. She had been assessed from admission and the patient was not deemed candidate for tPA, hence the MRI finding must have been present on admission and was fairly small that has not been able to be visualized on the brain CT. Therefore, the patient's blood pressure was slowly titrated and maintained and over the course of the week, she is back to her home regimen of losartan and p.o. atenolol. She did undergo EEG on 2 separate occasions. She did have abnormal EEG due to asymmetrical abnormal rhythm bilaterally with more suppressed on the left hemisphere suggestive of cerebral dysfunction, but there was no focal evidence of epileptiform discharge. Nonetheless, given the presentation, she was started on antiepileptic medication , Depakote 125 t.i.d. I did see the patient as my initial encounter on 02/03/18 , and on my assessment at that time, the patient was still having some left- sided neglect, responding to minimal stimuli and attempting to follow simple commands. Urinalysis was performed, which did show positive UTI for E. coli and hence we initiated treatment with ceftriaxone. Also, on evaluation, she was found to be tachycardic and when placed in tele, she was in SVT with a heart rate of 140. On reviewing her record, it was noted that her atenolol home medication was held on admission, simply as she was on the nicardipine drip , which probably reflex tachycardia. She was started back on atenolol after Cardizem 10 mg IV push, which restored her normal sinus rhythm and she has been in a sins rhythm since her atenolol has been resumed. She continued to improve on a daily basis between 02/03/18, yesterday and today. She actually was able to sit herself, feed herself, conversing in normal conversation at baseline as confirmed by nursing staff, who got in touch with the [facility]. Her vital signs have been stabilized with a blood pressure of 133/62, satting 96% on room air, pulse 84 to 91, temperature 97.9. Her diagnostic studies have been fairly stable since admission with the exception of mild hypokalemia, which has supplemented and hypomagnesemia has been addressed as well. Therefore, after my full assessment today, I deemed the patient stable for discharge as outlined with the following plan in my progress note earlier today and the medications as outlined below. INPATIENT DIAGNOSTIC STUDIES: Brain CT, 01/30/18 at around 1:20 p.m., chronic findings suggestive of microvascular disease, stable in comparison to 10/04/17. It was repeated 01/30/18 at 4 p.m., no acute changes, chronic vessel ischemic changes. CTA of the head at 4:51 p.m., summary reflects atherosclerosis, no internal carotid artery stenosis, no aneurysm or vascular malformation or occlusion. MRI of the brain, 02/02/18, reveals diffuse chronic small vessel ischemic changes with evidence of remote hemorrhage of the right basal ganglia and medial temporal lobe, no midline shift. EEG, 01/31/18, abnormal due to generalized disorganized background rhythm, greater on the left with no evidence of epileptiform seizure. This was repeated again on 02/02/18, which revealed similar findings. Chest x-ray on 02/03/18 shows no acute disease. Multiple EKGs, last 02/05/18, shows sinus rhythm, rate 80, SC 133, QTc 432, QRS 72, left anterior fascicular block, otherwise no ischemic changes. EKG, 02/03/18, shows sinus tachycardia that was done after her Cardizem, rate 104. EKG, 02/03/18 around 4:55 reveals SVT with a rate of 185 and some repolarization in the lateral inferior lead resolved after controlling the rate. Her EKG from admission, 01/30/18, shows sinus rhythm, rate 77, SC 143, QTc 454, QRS 78. CONSULTATIONS: Neurology, Dr. Gutierrez and Dr. Jeremy Olmos. seizure most likely from her hemorrhage and was placed on valproic acid and recommended repeat MRI as an outpatient next week. DISCHARGE MEDICATIONS: 1. Cipro 250 mg daily. 2. Omeprazole 20 mg daily. 3. Maalox 15 mL every 4 hours as needed. 4. Mucinex 600 mg b.i.d. 5. Tylenol 650 mg every 4 hours as needed. 6. Robitussin 10 mL every 4 hours as needed. 7. Magnesium hydroxide 30 mL as needed for constipation. 8. Zoloft 25 mg daily. 9. Losartan 50 mg daily. 10. Lactose-Reduced Food twice a day. 11. Atenolol 50 mg daily. 12. Depakote 125 mg t.i.d. 13. Trazodone 25 mg at bedtime. 14. Benadryl 25 mg p.r.n. for a rash triggered by ceftriaxone intravenously. DISCHARGE INSTRUCTIONS: Follow up with her primary care providers at the [facility]. I would recommend followup with Neurology, Dr. Gutierrez's group, in 1 to 2 weeks. Instruction to have an MRI as an outpatient next week. [id number]/[facility] #: [id number] [facility]
[2018-02-05] MEDS: Ciprofloxacin TAB* 250 MG PO SCH (16:29)
[2018-02-05] MEDS: Haloperidol INJ IV/IM* 5 MG/ML AMP IV SLOW PU PRN (22:13)
[2018-02-05] MEDS: traZODone TAB* 50 MG TAB PO SCH (23:21)
[2018-02-05] MEDS: Atenolol TAB* 25 MG PO SCH (23:23)
[2018-02-06 00:16] VITALS: BP 134/65
[2018-02-06] MEDS: Potassium Chloride LIQUID* 20 MEQ PACKET PO SCH (08:26)
[2018-02-06] MEDS: Senna TAB PO SCH (08:27)
[2018-02-06] MEDS: Losartan TAB* 25 MG PO SCH (08:28)
[2018-02-06] MEDS: Ciprofloxacin TAB* 250 MG PO SCH (08:29)
[2018-02-06] MEDS: Sertraline* 25 MG TAB PO SCH (08:29)
[2018-02-06] MEDS: Divalproex Sprinkle CAP* 125 MG PO SCH (08:31)
== END 2018-02-06 10:04 | DRG 65 ==
LOC: ED 13:13 → ICU 16:22 → MEDTELE 01-31 14:04
PROVIDERS: ADMIT Internal Medicine; ATTEND Internal Medicine
PROC: 0T9B70Z Drainage of Bladder with Drainage Device, Via Natural or Artificial Opening (ICD-10-PCS; principal; 2018-01-30)
PROC: 4A10X4Z Monitoring of Central Nervous Electrical Activity, External Approach (ICD-10-PCS; 2018-01-30)
DX: I62.9 Nontraumatic intracranial hemorrhage, unspecified (principal); I67.4 Hypertensive encephalopathy; N39.0 Urinary tract infection, site not specified; I16.1 Hypertensive emergency; I47.1 Supraventricular tachycardia; I69.254 Hemiplegia and hemiparesis following other nontraumatic intracranial hemorrhage affecting left non-dominant side; I10 Essential (primary) hypertension; I25.10 Atherosclerotic heart disease of native coronary artery without angina pectoris; K21.9 Gastro-esophageal reflux disease without esophagitis; R29.710 NIHSS score 10; F41.9 Anxiety disorder, unspecified; F32.9 Major depressive disorder, single episode, unspecified; Z66 Do not resuscitate; R33.9 Retention of urine, unspecified; R47.01 Aphasia; I44.4 Left anterior fascicular block; B96.20 Unspecified Escherichia coli [E. coli] as the cause of diseases classified elsewhere; R47.81 Slurred speech; R56.9 Unspecified convulsions; E87.6 Hypokalemia; E83.42 Hypomagnesemia; Z88.8 Allergy status to other drugs, medicaments and biological substances; Z95.1 Presence of aortocoronary bypass graft; Z85.820 Personal history of malignant melanoma of skin; Z98.42 Cataract extraction status, left eye; Z98.41 Cataract extraction status, right eye; Z90.710 Acquired absence of both cervix and uterus; Z87.440 Personal history of urinary (tract) infections; Z99.3 Dependence on wheelchair; Z91.81 History of falling; Z23 Encounter for immunization; Z88.2 Allergy status to sulfonamides; Z88.1 Allergy status to other antibiotic agents; Z90.49 Acquired absence of other specified parts of digestive tract
CPT/HCPCS: 36415; 70450; 70496; 70498; 70551; 71045; 80048; 80053; 80061; 81003; 81015; 83605; 83735; 84100; 84484; 85025; 85027; 85610; 85730; 87077; 87086; 87186; 87641; 90686; 93005; 95816; 99285; A9270-GY; G8978-GP-CJ; G8979-GP-CI; G8987-GO-CM; G8988-GO-CJ; J0696; J1630; J1650; J2060; J3475; J3480; Q2009; Q9967